=== PATIENT | male | born 1950 | race Caucasian/White ===

== ENCOUNTER 2021-03-28 09:51 | Emergency (ER) | payer MEDICARE, BC, SELFPAY ==
--- NOTE | 2021-03-28 10:01 | ED.GENADULT ---
HPI - General Adult General Chief complaint: Fall Stated complaint: Left buttox Pain Time Seen by Provider: 03/28/21 10:02 Source: patient and RN notes reviewed Mode of arrival: ambulatory Limitations: no limitations History of Present Illness HPI narrative: Dc is a 70-year-old male patient who [facility] Patient states he fell yesterday in his garage and landed on his left buttock. 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 The left pelvis was removed and he had a second surgery that removed his left leg and remaining left hip bone. Patient states he has no bone in the area. This was all done 30+ years ago. MD complaint: left buttock pain Related Data Home Medications Medication Instructions Recorded Confirmed losartan 100 mg PO DAILY 03/28/21 03/28/21 simvastatin 10 mg PO DAILY 03/28/21 03/28/21 tamsulosin 0.4 mg PO DAILY 03/28/21 03/28/21 verapamil 120 mg PO DAILY 03/28/21 03/28/21 Allergies Allergy/AdvReac Type Severity Reaction Status Date / Time STERI-TAPE Allergy Unknown BLISTERS Uncoded 03/28/21 10:17 Review of Systems Review of Systems: CONSTITUTIONAL: Denies body aches, fever, chills, or sweats. EYES: Denies visual changes, redness, or discharge. ENT: Denies rhinorrhea, congestion, sore throat, or otalgia. CARDIOVASCULAR: Denies chest pain, palpitations, or edema. RESPIRATORY: Denies cough or dyspnea. GASTROINTESTINAL: Denies abdominal pain, nausea, vomiting, or diarrhea. GENITOURINARY: Denies dysuria or hematuria. SKIN: Denies rash, itching, or wounds. MUSCULOSKELETAL: Denies back pain, + left butock pain. NEUROLOGIC: Denies headache, numbness, tingling, or weakness. PSYCH: Denies depression or anxiety. All systems reviewed & are unremarkable except as noted in HPI and below PMFSH Comments At time of signature, I have reviewed and agree with nursing past medical, surgical, social and family history unless otherwise noted. Please see nursing chart for further information. There is no relevant family history pertinent to the presenting complaint Exam Narrative: GENERAL: Well-appearing, well-nourished, and in no acute distress. HEAD: Normocephalic, atraumatic. EYES: EOMI. No redness or drainage. Conjunctivae normal. ENT: Mucous membranes pink and moist. Nares clear. NECK: Normal AROM. Supple. CHEST: No respiratory distress. MUSCULOSKELETAL: No bony tenderness, pain to left buttock with palpation, minimal bruising noted to area, minimal edeam noted. EXTREMITIES: Normal range of motion. No edema. SKIN: Warm, dry, no rash. Capillary refill normal. Normal skin turgor. NEURO: No focal deficits. Alert and oriented x3. Gait steady. PSYCH: Normal affect. No signs of depression or anxiety. Course Course Emergency Course: Patient was examined. Patient has a complicated history on the left pelvic and hip area. Patient has had removal of his left pelvic bones and left hip bones and left leg due to cancer over 30 years ago. Patient states all the hardware in that area have been removed. Vital Signs Vital signs: Reviewed Medical Decision Making Differential Diagnosis Differential Diagnosis: back strain, sciatica, left buttock pain Medical Records Medical records reviewed: Yes I reviewed the external patient's medical records. Critical Care Time Critical Care Time Critical Care Time: No Discharge Plan Discharge Clinical Impression: Buttock sprain Qualifiers: Encounter type: initial encounter Laterality: left Qualified Code(s): S73.192A - Other sprain of left hip, initial encounter Patient Disposition: Home, Self-Care Condition: Stable Instructions: Antibiotic Form, Muscle Strain (DC), Contusion in Adults (ED) Additional Instructions: Ice to area. Take medicines as directed. follow up with primary care physician in 3-5 days if no improvement noted. Patient Language: Arabic Prescriptions: New ibuprofen 800 mg
[2021-03-28 10:06] VITALS: BP 111/59; PULSE 96; RESP 16; TEMP 36.3; O2SAT 100
== END 2021-03-28 10:35 | disposition home or self-care (01) ==
PROVIDERS: Emergency Provider Nurse Practitioner Family
DX: S39.82XA Other specified injuries of lower back, initial encounter (principal); W19.XXXA Unspecified fall, initial encounter; Z85.830 Personal history of malignant neoplasm of bone; E78.00 Pure hypercholesterolemia, unspecified; I10 Essential (primary) hypertension; N40.0 Benign prostatic hyperplasia without lower urinary tract symptoms
CPT/HCPCS: 99213; G0463

== ENCOUNTER 2021-04-28 08:03 | Emergency (ER) | payer MEDICARE, BC, SELFPAY ==
--- NOTE | 2021-04-28 08:13 | ED.FALL ---
HPI - Fall General Chief Complaint: Extremity Injury, Lower Stated Complaint: fell left side pain Time Seen by Provider: 04/28/21 08:27 Source: patient and RN notes reviewed Mode of arrival: ambulatory Limitations: no limitations History of Present Illness HPI Narrative: 71-year-old male presents with concern for left hip area pain. He reports he was overly tired and lost his balance yesterday and fell from standing in his kitchen hitting a wood floor. 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 He is reporting pain in the soft tissue of the left pelvic area. He denies bruising, redness, warmth, open skin. Reports he used heat which was helpful. Reports he had an identical injury 1 month ago and was treated with prednisone and ibuprofen which resolved his pain. Patient uses crutches for mobility at baseline. He denies syncope or near syncope. Denies chest pain or trouble breathing. MD complaint: fall Related Data Home Medications Medication Instructions Recorded Confirmed losartan 100 mg PO DAILY 03/28/21 04/28/21 simvastatin 10 mg PO DAILY 03/28/21 04/28/21 tamsulosin 0.4 mg PO DAILY 03/28/21 04/28/21 verapamil 120 mg PO DAILY 03/28/21 04/28/21 Allergies Allergy/AdvReac Type Severity Reaction Status Date / Time STERI-TAPE Allergy Unknown BLISTERS Uncoded 04/28/21 08:29 Review of Systems Review of Systems: CONSTITUTIONAL: Denies malaise, chills, sweats, or fever. CARDIOVASCULAR: Denies chest pain, palpitations, or edema. RESPIRATORY: Denies cough or dyspnea. GASTROINTESTINAL: Denies abdominal pain SKIN: Denies bruising, redness, warmth, open skin MUSCULOSKELETAL: Reports left pelvic area pain NEUROLOGIC: Denies numbness, weakness All systems reviewed & are unremarkable except as noted in HPI and below PMFSH Comments At time of signature, agree with nursing past medical, surgical, social and family history. There is no relevant family history pertinent to the presenting complaint Exam Narrative: GENERAL: Well-appearing, well-nourished, and in no acute distress. HEAD: Normocephalic, atraumatic. EYES: PERRLA, sclera clear ENT: Mucous membranes moist. NECK: Supple. CHEST: No respiratory distress. Clear to auscultation. No bony deformities, no asymmetry. Speaks in full sentences. HEART: Regular rate and rhythm. No murmur heard. Normal peripheral pulses. EXTREMITIES: Grossly normal range of motion. No edema. Grossly normal strength and sensation. Tenderness to palpation upon left pelvic area/amputated area. SKIN: Warm, dry, no visible rash. NEURO: Alert and oriented x3. PSYCH: Normal mood and affect Course Course Emergency Course: Patient is aware of diagnosis, understands and agrees to treatment plan. Anticipatory guidance given. Patient agrees to follow-up as directed and is aware of reasons to seek care at the emergency department. Portions of this record may have been created with voice recognition software Vital Signs Vital signs: Reviewed. MDM - Fall MDM Narrative Medical decision making narrative: Patients injury and pain is consistent with musculoskeletal etiology. No signs of neurological or vascular compromise on exam. Compartments and tissues are soft without signs of compartment syndrome. Pain is felt appropriate for further evaluation on an outpatient basis. Critical Care Time Critical Care Time Critical Care Time: No Discharge Plan Discharge Clinical Impression: Acute hip pain Qualifiers: Laterality: left Qualified Code(s): M25.552 - Pain in left hip Fall Qualifiers: Encounter type: initial encounter Qualified Code(s): W19.XXXA - Unspecified fall, initial encounter Patient Disposition: Home, Self-Care Condition: Stable Instructions: Fall Prevention (ED) Additional Instructions: Avoid activities that cause pain until the pain subsides. Alternate heat and ice to the area 20-30 minutes 4-6 times a day Leeroy
[2021-04-28 08:16] VITALS: BP 125/65; PULSE 82; RESP 16; TEMP 37.2; O2SAT 100
== END 2021-04-28 08:40 | disposition home or self-care (01) ==
PROVIDERS: Emergency Provider Nurse Practitioner
DX: M25.552 Pain in left hip (principal); W18.30XA Fall on same level, unspecified, initial encounter; Y92.000 Kitchen of unspecified non-institutional (private) residence as the place of occurrence of the external cause
CPT/HCPCS: 99213; G0463

== ENCOUNTER 2022-05-10 10:00 | Emergency (ER) | payer MEDICARE, BC, SELFPAY ==
[2022-05-10 10:10] VITALS: BP 107/63; PULSE 86; RESP 18; TEMP 36.4; O2SAT 100
--- NOTE | 2022-05-10 11:14 | ED.MALEGU ---
HPI - Male Genitourinary General Chief complaint: Urogenital-Male Stated complaint: UTI Time Seen by Provider: 05/10/22 11:14 Source: patient, RN notes reviewed and old records reviewed Mode of arrival: ambulatory Limitations: no limitations History of Present Illness HPI Narrative: 72-year-old male presents to the [facility] with complaints of a UTI. Has a history of UTIs. Patient states that his normally nose but she in June of 2021. States he has just had strong urine, abnormal smell, on comfortable urination as well as just not feeling well. History of enlarged prostate, hypertension and high cholesterol Related Data Home Medications Medication Instructions Recorded Confirmed losartan 100 mg tablet 100 mg PO DAILY 03/28/21 05/10/22 simvastatin 10 mg tablet 10 mg PO DAILY 03/28/21 05/10/22 tamsulosin 0.4 mg capsule 0.4 mg PO DAILY 03/28/21 05/10/22 verapamil 120 mg tablet 120 mg PO DAILY 03/28/21 05/10/22 Allergies Allergy/AdvReac Type Severity Reaction Status Date / Time No Known Allergies Allergy Verified 05/10/22 10:40 Review of Systems Review of Systems: All systems reviewed & are unremarkable except as noted in HPI and below Constitutional: Constitutional: Reports no additional constitutional complaints Eyes: Eyes: Reports no additional eye complaints ENT: Reports system reviewed and no additional complaints, except as documented Cardiovascular: Cardiovascular: Reports no additional cardiovascular complaints, Denies chest pain and Denies dyspnea Respiratory: Respiratory: Reports no additional respiratory complaints, Denies chest congestion, Denies cough and Denies dyspnea Gastrointestinal: Gastrointestinal: Reports no additional gastrointestinal complaints, Denies abdominal pain, Denies nausea and Denies vomiting Genitourinary: Genitourinary: Reports as per HPI, Reports dysuria and Reports urinary frequency Musculoskeletal: Musculoskeletal: Reports no additional musculoskeletal complaints Integumentary/Breasts: Skin/Breast: Reports system reviewed and no additional complaints, except as docu Neurologic: Reports system reviewed and no additional complaints, except as documented Psychiatric: Psychiatric: Reports no additional psychiatric complaints Allergic/Immunologic: Allergic/Immunologic: Reports no additional allergic/immunologic complaints [facility] Past Medical History Medical History (Updated 05/10/22 @ 20:30 by Anabela Thibodeaux, ISAIAS) High cholesterol History of high blood pressure Surgical History Surgical History (Updated 12/26/22 @ 20:30 by Anabela Thibodeaux APRN) Amputated left leg Comments At the time of my signature, I reviewed and agree with the nursing past medical, surgical, social, and family history. There is no relevant family history pertinent to the patient complaint. Exam Const: General: cooperative, healthy appearing, comfortable, no acute distress, well developed, alert and well nourished Nutritional Appearance: well nourished Orientation/consciousness: patient oriented x3 Limitations: no limitations HENMT: Head: normal to inspection Ears: hearing grossly normal bilaterally and external ears normal Face/Nose/Sinus: Normal external nose present, Normal nares present, Normal nasal mucous membranes and turbinates present and normal facial exam Face and sinus: normal facial exam Mouth: Yes Normal oral and palatal mucosa present, Yes lip normal and Yes moist mucous membranes Throat: posterior oropharynx normal and uvula midline Eyes: General: appearance normal, both eyes and all related structures Alignment and Position: alignment normal Periorbital: periorbital findings normal Conjunctivae: conjunctivae normal Pupils: Equal, round and reactive pupils present EOM: EOMs intact bilaterally Neck: Neck: normal visual inspection, full ROM, no lymphadenopathy and no meningeal signs Chest: Chest palpation & inspection: normal inspection of the chest
== END 2022-05-10 11:25 | disposition home or self-care (01) ==
PROVIDERS: Emergency Provider Nurse Practitioner
DX: N30.01 Acute cystitis with hematuria (principal)
CPT/HCPCS: 81003; 87077; 87086; 87186; 99213; G0463

== ENCOUNTER 2022-06-05 20:07 | Inpatient (IN) | payer MEDICARE, BC, SELFPAY ==
--- NOTE | ~2022-06-05 | CT_ITS ---
Non-contrast CT scan of the Abdomen and Pelvis Clinical indication: Urinary retention Technique: 5 mm axial scans were obtained through the abdomen and pelvis without intravenous or oral contrast. Dose reduction technique was used on this scan by utilizing automated exposure control and iterative reconstruction technique. The dose-length product (DLP) was 1516.89 mGy-cm. Findings: Images through the lung bases reveal moderate bilateral pleural effusions with partial fabricio ateral lower lobe atelectasis. There is hyperdense material to right lung base, raising possibility o f aspiration. There are bilateral renal stones present, measuring up to 1.2 cm on the right, and 1.3 cm and the lef t. Suspected mild left hydronephrosis. Liver there appears small, with probable micronodular contour The spleen, pancreas, gallbladder, and adrenals appear normal. There is no aortic aneurysm. There is no evidence of bowel obstruction. Large amount of abdominopelvic ascites present. Images through the pelvis were performed. Patient is status post prior resection of the left half the pelvis. Probable urinary bladder stone present, versus possibly left UVJ stone. Urinary bladder valorie apsed around a Webb catheter. Impression: Probable cirrhotic liver with large amount of abdominopelvic ascites. Moderate bilateral pleural effusions. Hyperdense material right lung base raises possibility of aspir ation. Bilateral nephrolithiasis. Probable mild left hydronephrosis with possible left UVJ stone versus urin devon bladder stone. Prior left hemipelvectomy. Reviewed, dictated and finalized at [facility]. ER Impression: Probable cirrhotic liver with large amount of abdominopelvic ascites. Moderate bilateral pleural effusions. Hyperdense material right lung base raise s possibility of aspiration. Bilateral nephrolithiasis. Probable mild left hydronephrosis with possible left UVJ stone versus urinary bladder stone. Prior left hemipelvectomy.
--- NOTE | ~2022-06-05 | US_ITS ---
EXAMINATION: US paracentesis abd w/image DATE: 06/08/2022 12:54 INDICATION: Ascites. TECHNIQUE: The procedure and its risks, benefits, and alternatives were discussed with the patient. P otential risks discussed included bleeding and infection. The skin was prepped and draped in sterile fashion. 1% lidocaine was used for local anesthesia. Under ultrasound guidance, a 5 Fr catheter with trochar was advanced into the ascites in the left lower quadrant. Fluid was aspirated. The catheter w as removed, and a dressing was applied. There were no immediate complications. FINDINGS: Ultrasound images demonstrate ascites and the catheter within the fluid. IMPRESSION: 1. Successful ultrasound-guided paracentesis yielding 5000 mL of clear, yellow fluid. Reviewed, dictated and finalized at location A. MAKING MACHINE OPERATOR
--- NOTE | ~2022-06-05 | US_ITS ---
Testicular ultrasound with doppler. Indication: Scrotal edema. Technique: Real-time sonography the scrotum was performed. Color flow Doppler and Doppler spectral an alysis were performed. Findings: The testes are homogeneous in echotexture bilaterally. There is no evidence of an intrates ticular mass. The right testis measures 3.0 x 2.3 x 2.3 cm and the left 2.9 x 2.3 x 2.1 cm. There is color-flow seen to both testes. Arterial and venous spectral waveforms are seen in both testes. There is no sonographic evidence of torsion. The head of the epididymis is visualized bilaterally and is within normal limits. Marked, diffuse scrotal wall edema noted. Impression: No testicular mass or torsion. Marked, diffuse scrotal wall edema, nonspecific. Reviewed, dictated and finalized at [facility]. IC SEPARATOR OPERATOR Impression: No testicular mass or torsion. Marked, diffuse scrotal wall edema, nonspecific.
--- NOTE | ~2022-06-05 | XR_ITS ---
EXAMINATION: XR chest 1V portable DATE: 06/06/2022 02:39 INDICATION: Weakness. TECHNIQUE: A single frontal view of the chest was obtained. COMPARISON: None. FINDINGS: There is mild elevation of right hemidiaphragm. There is mild atelectasis in the lower lung zones. No pleural effusion or pneumothorax. The heart size is normal. IMPRESSION: 1. Mild atelectasis in the lower lung zones. Reviewed, dictated and finalized at location A. YTICAL DATA SCIENTIST
--- NOTE | ~2022-06-05 | US_ITS ---
EXAMINATION: US renal BI DATE: 06/07/2022 07:58 INDICATION: Urinary retention TECHNIQUE: Multiple ultrasound grayscale images of the kidneys were obtained. COMPARISON: CT dated 06/06/2022 FINDINGS: The right kidney measures 10.7 x 4.7 x 4.6 cm. The left kidney measures 11.4 x 6.2 x 5.5 cm. The kidn eys demonstrate normal echogenicity. There is no hydronephrosis in either kidney. No stones identifi ed. The bladder is decompressed around a Webb catheter which limits evaluation. Large amount of asci beny. IMPRESSION: 1. Normal kidneys without hydronephrosis. 2. Large amount of ascites. Reviewed, dictated and finalized at location B. ITY ASSURANCE AUDITOR
--- NOTE | ~2022-06-05 | US_ITS ---
EXAMINATION: US venous doppler LE RT DATE: 06/07/2022 07:59 INDICATION: Lower limb swelling and erythema TECHNIQUE: Grayscale ultrasound images without and with compression and Doppler ultrasound images of the right lower extremity veins were obtained. COMPARISON: None. FINDINGS: The visualized portions of right common femoral vein, profunda (deep) femoral vein, femoral vein, pop liteal vein, peroneal trunk, posterior tibial veins, peroneal veins, gastrocnemius vein and greater s aphenous vein outflow are patent. IMPRESSION: 1. No deep venous thrombosis in the right lower limb. Reviewed, dictated and finalized at location B. CTOR CHILD ABUSE THERAPY
[2022-06-05 20:39] VITALS: BP 116/60; PULSE 96; RESP 16; TEMP 37; O2SAT 100
--- NOTE | 2022-06-06 01:37 | ECG_ITS ---
Measurements Intervals [place] Rate: 87 P: MS: 0 QRS: -11 QRSD: 102 T: 94 QT: 345 QTc: 417 Interpretive Statements SINUS OR ECTOPIC ATRIAL RHYTHM LOW QRS VOLTAGE IN LIMB LEADS ANTEROSEPTAL INFARCT, AGE INDETERMINATE BORDERLINE ST-T WAVE ABNORMALITY- HIGH LATERAL LEADS BASELINE ARTIFACT- I, V1-V3 ABNORMAL ECG NO PREVIOUS ECG AVAILABLE FOR COMPARISON Electronically Signed On 06-06-2022 7:21:47 COFFEE ROASTER by Rosalio Rai D.O.
--- NOTE | 2022-06-06 02:06 | ED.GENADULT ---
HPI - General Adult General Chief complaint: Weakness Stated complaint: increased weakness, N/V, loss of appetite Time Seen by Provider: 06/06/22 01:21 History of Present Illness HPI narrative: Patient 72-year-old gentleman who presents the emergency department with chief complaint of generalized weakness. Patient reports that for some time getting progressively weaker. 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 Related Data Home Medications Medication Instructions Recorded Confirmed losartan 100 mg tablet 100 mg PO DAILY 03/28/21 05/10/22 simvastatin 10 mg tablet 10 mg PO DAILY 03/28/21 05/10/22 tamsulosin 0.4 mg capsule 0.4 mg PO DAILY 03/28/21 05/10/22 verapamil 120 mg tablet 120 mg PO DAILY 03/28/21 05/10/22 Allergies Allergy/AdvReac Type Severity Reaction Status Date / Time No Known Allergies Allergy Verified 06/05/22 20:08 Review of Systems Review of Systems: A 10 system review of systems was completed on the patient and is negative except for what is stated in the HPI. Nursing and ancillary documentation was reviewed. [facility] Past Medical History Medical History High cholesterol History of high blood pressure Surgical History Surgical History Amputated left leg Exam Narrative: GENERAL: Well-appearing, well-nourished, and in no acute distress. HEAD: Normocephalic, atraumatic. EYES: PERRLA and EOMI. ENT: Nares clear, no rhinorrhea or epistaxis. Mucous membranes moist. NECK: Supple. CHEST: Clear to auscultation. No respiratory distress. HEART: Regular rate and rhythm. No murmur heard. Normal peripheral pulses. ABDOMEN: Soft, nontender, nondistended, normal active bowel sounds. EXTREMITIES: Normal range of motion. No edema. There is redness present on the medial thigh on the right leg. 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 NEURO: No focal deficits. Alert and oriented x3. PSYCH: Normal mood and affect. Course Vital Signs Vital signs: Vital Signs Temperature 37.0 C 06/05/22 20:39 Pulse Rate 96 06/05/22 20:39 Respiratory Rate 16 06/05/22 20:39 Blood Pressure 116/60 06/05/22 20:39 Pulse Oximetry 100 06/05/22 20:39 Temperature 37.0 C 06/05/22 20:39 Pulse Rate 96 06/05/22 20:39 Respiratory Rate 16 06/05/22 20:39 Blood Pressure 116/60 06/05/22 20:39 Pulse Oximetry 100 06/05/22 20:39 Medical Decision Making MDM Narrative Medical decision making narrative: Patient's urinalysis showed evidence of UTI. Prior culture showed evidence of pseudomonal UTIs due to this initially the plan was to be to start the patient on a Rocephin coverage but due to the pseudomonal previous cultures have the patient will be given Levaquin. The patient had a slightly elevated lactate at 3.3 and was showing some transaminitis the patient is not tachycardic or hypotensive at this time the case was discussed with the hospitalist and the patient will be admitted to the hospital. Vital Signs Vital Signs: Vital Signs Temperature 37.0 C 06/05/22 20:39 Pulse Rate 96 06/05/22 20:39 Respiratory Rate 16 06/05/22 20:39 Blood Pressure 116/60 06/05/22 20:39 Pulse Oximetry 100 06/05/22 20:39 Temperature 37.0 C 06/05/22 20:39 Pulse Rate 96 06/05/22 20:39 Respiratory Rate 16 06/05/22 20:39 Blood Pressure 116/60 06/05/22 20:39 Pulse Oximetry 100 06/05/22 20:39 Lab Data 06/06/22 02:05
[2022-06-06] MEDS: SODIUM CHLORIDE 0.9% IV 1,000 ML 999 ML IV CONT ×2 (02:12→04:07)
[2022-06-06 02:33] LABS: Basophils Percent Auto 0.1 % (0.2-1.2); Eosinophils Percent Auto 0.1 % (0-4.4); Hematocrit 36.5 % (42.0-52.0); Hemoglobin 12.6 g/dL (14.0-18.0); Immature Granulocyte Absolute 0.04 K/mm3 (0.00-0.031); Immature Granulocyte Percent A 0.4 % (0-0.5); Lymphocytes Absolute Auto 0.82 K/mm3 (0.9-3.2); Lymphocytes Percent Auto 8.2 % (18.3-44.2); Mean Corpuscular HGB Conc 34.5 g/dl (32-36); Mean Corpuscular Hemoglobin 32.8 pg (26-34); Mean Corpuscular Volume 95.1 fl (80-100); Mean Platelet Volume 10.7 fl (7.4-10.4); Monocytes Absolute Auto 1.4 K/mm3 (0.1-0.6); Monocytes Percent Auto 13.7 % (2.6-8.5); Neutrophils Absolute Auto 7.7 K/mm3 (1.3-6.7); Neutrophils Percent Auto 77.5 % (45.5-73.1); Platelet Count Result 228 k/mm3 (150-375); Red Blood Count 3.84 M/mm3 (4.6-6.20); Red Cell Distribution Width 14.6 % (11.5-14.5)
[2022-06-06 02:35] LABS: Appearance Urine Clear (Clear); Bilirubin Urine 1+ (Negative); Blood Urine 2+ (Negative); Color Urine Yellow (Yellow); Glucose Urine UA Negative (Negative); Ketones Urine Trace mg/dL (Negative); Leukocyte Esterase Ur 1+ LEU/UL (Negative); Nitrate Urine Positive (Negative); Protein Urine Trace mg/dL (Negative); Urobilinogen Urine 0.2 mg/dL (<2.0); pH Urine 5.5 (5.0-9.0)
[2022-06-06 02:40] LABS: Bacteria Urine Trace /hpf; Mucus Urine Rare /lpf; RBC Urine 0-2 /hpf (0-2); Squamous Epithelial Cell Urine Rare /hpf (Few)
[2022-06-06 02:44] LABS: INR 1.1; Prothrombin Time 14.1 Seconds (11.1-14.7)
[2022-06-06 02:45] LABS: Alanine Aminotransferase 64 U/L (6-50); Alkaline Phosphatase 90 U/L (38-126); Anion Gap 5 mmol/L (8-16); Aspartate Amino Transferase 147 U/L (17-59); Bilirubin,Total 1.3 mg/dL (0.2-1.3); Blood Urea Nitrogen 64 mg/dL (9-20); Calcium 8.1 mg/dL (8.4-10.2); Carbon Dioxide 29 mmol/L (22-30); Chloride 93 mmol/L (98-107); Estimated CRCL calculation 32 ml/min; Estimated Glomerular Filt Rate 37; Glucose 114 mg/dL (65-110); Lactic Acid Reflex 3.3 mmol/L (0.7-2.0); Magnesium 1.9 mg/dL (1.6-2.3); Partial Thromboplastin Time 30.3 SECONDS (22.3-36.8); Potassium 4.4 mmol/L (3.4-5.0); Sodium 127 mmol/L (137-145)
[2022-06-06 02:52] LABS: Add Urine Microscopic? YES
[2022-06-06 02:57] LABS: Troponin I 0.015 ng/mL (0.000-0.034)
[2022-06-06 03:39] LABS: Procalcitonin 3.9 ng/mL
[2022-06-06 04:50] LABS: Influenza A QL RT-PCR Negative (Negative); Influenza B QL RT-PCR Negative (Negative); RSV RNA, RT-PCR Negative (Negative); SARS-CoV-2 RNA PCR Negative
[2022-06-06 05:31] LABS: Reflex Lactic Acid Yes or No Add Lactic
[2022-06-06 05:34] LABS: Troponin I < 0.012 ng/mL (0.000-0.034)
[2022-06-06 06:08] VITALS: BMI 22.1
--- NOTE | 2022-06-06 06:19 | ADMGEN ---
This patient, Dc Pizano, was admitted to [address] [place] [address] Room 315-02. Patient/family oriented to hospital policies and general routines including ID bracelet, bed and alarms, visiting hours, pain management, procedures, bathroom and other care routines, personal items, smoking policy, room service/diet, and visiting hours. Information on how to activate the Rapid Response Team has been discussed. Patient/Family are encouraged to report perceived risks to care and to ask questions if they do not understand what they are told or what they should do.
[2022-06-06 06:41] LABS: Lactic Acid 2.3 mmol/L (0.7-2.0)
[2022-06-06 08:01] VITALS: BP 112/60; PULSE 94; RESP 17; TEMP 36.9; O2SAT 98
[2022-06-06] MEDS: SODIUM CHLORIDE 0.9% IV 1,000 ML 125 ML IV CONT ×2 (08:37→13:28)
[2022-06-06] MEDS: VERAPAMIL HCL 120 MG TABLET IMMED RELEASE PO (09:37)
[2022-06-06] MEDS: SERTRALINE HCL 25 MG TABLET PO (09:37)
[2022-06-06] MEDS: TAMSULOSIN HCL 0.4 MG CAPSULE PO (09:37)
[2022-06-06] MEDS: ENOXAPARIN 40 MG/0.4 ML SYRINGE SUB-Q (09:37)
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
[2022-06-06 13:03] LABS: Sodium 131 mmol/L (137-145)
[2022-06-06 13:07] LABS: Lactic Acid Reflex 2.5 mmol/L (0.7-2.0)
[2022-06-06 13:29] LABS: Creatine Kinase 385 U/L (55-170)
[2022-06-06 14:00] VITALS: BP 96/62; PULSE 73; RESP 20; TEMP 36.2; O2SAT 94
[2022-06-06 16:10] LABS: Folic Acid 3.3 ng/mL (2.76->20)
[2022-06-06 19:19] LABS: Free T4 Free Thyroxine Reflex 1.77 ng/dL (0.78-2.19)
[2022-06-06 20:06] LABS: Total Triiodothyronine (T3) 0.89 NG/ML (0.97-1.69)
--- NOTE | 2022-06-06 21:50 | WPDURCON ---
Assessment and Plan Assessment and plan (1) Urinary retention: Code(s): R33.9 - Retention of urine, unspecified Status: Acute Assessment and Plan: Based on the fact patient is draining clear urine in his bladder irrigates freely and normally I do not suspect he is in urinary tension, and may never have been. Ordered a CT scan abdomen and pelvis to look for appropriate positioning of his Webb catheter in his bladder and other explanations for suggestion of incomplete bladder emptying on bladder scan. Urology Consult Note HPI Date Seen: 06/06/22 Requesting Physician: Kayla Yates PA-C Primary Care Provider: [facility]YSIC[facility] Consult Narrative Narrative: Dc Pizano is a 72 year old male without prior known urological history and previously unknown to our practice. He presents to the emergency department with generalized weakness. Two urethral catheters have been placed but he has been noted to have minimal urine output. Attempts of bladder scan suggest a volume of approximately 2000 cc. When I arrived on a Tuesday evening the patient was comfortable in his catheter had approximately 200 cc of clear urine in it. His Webb catheter irrigates well. He does have a distorted anatomy and I suspect what this proceed to his incomplete bladder emptying is some other pelvic structure. Review of Systems Review of Systems: ROS unobtainable: Yes unobtainable due to mental status PMFSH Past Medical History Medical History (Updated 06/06/22 @ 13:21 by Kayla Yates PA-C) High cholesterol History of high blood pressure Osteosarcoma Surgical History Surgical History Amputated left leg Social History Social History (Updated 06/06/22 @ 13:03 by Kayla Yates PA-C) Years smoked: 50 Smoking status: Current every day smoker Tobacco type: pipe Alcohol intake: current Alcohol use details: 1-2 drinks/year Substance use: never Lack of Transportation: No Lack of Food: Never True Current Housing: I Have Housing Concerned About Future Housing: No Difficulty Paying Gas/Electric Bills: No Difficulty Paying for Meds: No Currently Unemployed: No Education: Master's Degree or Higher Difficulty w/ Childcare or Family Care: No Spiritual care concerns: No Meds Home Medications and Allergies Home Medications Medication Instructions Recorded Confirmed Type tamsulosin 0.4 mg capsule 0.4 mg PO DAILY 03/28/21 06/06/22 History verapamil 120 mg tablet 120 mg PO DAILY 03/28/21 06/06/22 History cephalexin 500 mg capsule 500 mg PO TID uti 06/06/22 06/06/22 History cholecalciferol (vitamin D3) 125 mcg PO WEEKLY 06/06/22 06/06/22 History meclizine 25 mg tablet 25 mg PO TID 06/06/22 06/06/22 History sertraline 25 mg tablet 25 mg PO DAILY 06/06/22 06/06/22 History Allergies Allergy/AdvReac Type Severity Reaction Status Date / Time No Known Allergies Allergy Verified 06/05/22 20:08 Vital Signs Vital Signs - 24 hr 06/06/22 08:01 06/06/22 08:00 06/06/22 14:00 Temperature 98.4 F 97.1 F L Pulse Rate 94 73 Respiratory Rate 17 20 Blood Pressure 112/60 96/62 L Pulse Oximetry 98 94 Oxygen Delivery Room Air Exam Const: General: no acute distress Resp: Effort & Inspection: normal respiratory effort GI: Inspection: non-distended GI Palp: No abdominal tenderness and No Guarding due to palpation present (GI) Auscultation: normal bowel sounds Other: Patien's abdomen is somewhat asymmetrical, likely due to his left above the knee amputation. : Male General Exam: Yes normal external exam Urinary Catheter: Urinary Catheter: patent and draining and urine clear Results Labs 06/06/22 02:05 06/06/22 12:53 Labs: Short CBC 06/06/22 Range/Units 02:05 WBC 10.0 (4.5-10.0) K/mm3 Hgb 12.6 L (14.0-18.0) g/dL Hct 36.5 L (42.0-52.0) % Plt Count 228
[2022-06-06 22:18] VITALS: BP 100/66; PULSE 73; RESP 18; TEMP 36.4; O2SAT 98
[2022-06-07 05:38] VITALS: BP 99/68; PULSE 67; RESP 16; TEMP 36.6; O2SAT 96
--- NOTE | 2022-06-07 07:31 | WPDUROPN2 ---
Progress Note: A&P Assessment and Plan (1) Generalized weakness: Code(s): R53.1 - Weakness Status: Acute Assessment and Plan: CT scan of the abdomen and pelvis confirms the patient's catheter is appropriately positioned and has bladder and draining well. Continues to have output of clear urine. CT scan does reveal significant pleural effusions and ascites. The ascites is probably what led to an inaccurate bladder scan suggesting urinary retention Patient does have some small stones in his bladder and a large stone in his left kidney which will likely require left ESWL, at some point down the road when he is more medically fit. Subjective Subjective Date/Time Seen: 06/07/22 07:31 No complaints, comfortable Review of Systems Review of Systems: ROS unobtainable: Yes unobtainable due to mental status Exam Const: General: no acute distress Resp: Effort & Inspection: normal respiratory effort GI: Inspection: non-distended GI Palp: No abdominal tenderness and No Guarding due to palpation present (GI) Auscultation: normal bowel sounds Other: Patien's abdomen is somewhat asymmetrical, likely due to his left above the knee amputation. : Male General Exam: Yes normal external exam Urinary Catheter: Urinary Catheter: patent and draining and urine clear Objective Data Vital Signs Vital Signs: Vital Signs - 24 hr 06/06/22 08:01 06/06/22 08:00 06/06/22 14:00 Temperature 98.4 F 97.1 F L Pulse Rate 94 73 Respiratory Rate 17 20 Blood Pressure 112/60 96/62 L Pulse Oximetry 98 94 Oxygen Delivery Room Air 06/06/22 22:18 06/07/22 05:38 Temperature 97.5 F L 97.8 F Pulse Rate 73 67 Respiratory Rate 18 16 Blood Pressure 100/66 99/68 L Pulse Oximetry 98 96 Oxygen Delivery Intake/Output Intake/Output: Intake & Output 06/04/22 06/05/22 06/06/22 06/07/22 23:59 23:59 23:59 23:59 Intake Total 3890 50 Output Total 150 500 Balance 3740 -450 Meds/Results Medications: Active Medications Generic Name Dose Route Start Last Admin Trade Name Freq PRN Reason Stop Dose Admin Acetaminophen 650 mg 06/06/22 08:50 Acetaminophen 325 Mg Tablet PO Q6H PRN Pain 1-3 Enoxaparin Sodium 40 mg 06/06/22 09:00 06/06/22 09:37 Enoxaparin 40 Mg/0.4 Ml Syringe SUB-Q 40 mg DAILY KAREN Administration Sodium Chloride 1,000 mls @ 125 mls/hr 06/06/22 04:45 06/06/22 13:28 Normal Saline Iv IV CONT 125 mls/hr .Q8H KAREN Administration Cefazolin Sodium 1 gm in 50 mls @ 100 mls/hr 06/06/22 12:45 06/07/22 06:09 Ancef 1 Gm/D5w 50 Ml Pm IVPB 100 mls/hr Q8HR KAREN Administration Sertraline HCl 25 mg 06/06/22 09:00 06/06/22 09:37 Sertraline Hcl 25 Mg Tablet PO 25 mg DAILY KAREN Administration Tamsulosin HCl 0.4 mg 06/06/22 09:00 06/06/22 09:37 Tamsulosin Hcl 0.4 Mg Capsule PO 0.4 mg DAILY KAREN Administration Verapamil HCl 120 mg 06/06/22 09:00 06/06/22 09:37 Verapamil Hcl 120 Mg Tablet Immed Release PO 120 mg DAILY KAREN Administration Radiology Results: ITS Impressions Chest X-Ray 06/06/22 07:53 IMPRESSION: 1. Mild atelectasis in the lower lung zones. Abdomen/Pelvis CT 06/07/22 06:40 Impression: Probable cirrhotic liver with large amount of abdominopelvic ascites. Moderate bilateral pleural effusions. Hyperdense material right lung base raises possibility of aspiration. Bilateral nephrolithiasis. Probable mild left hydronephrosis with possible left UVJ stone versus urinary bladder stone. Prior left hemipelvectomy. Labs Labs: Laboratory Results - last 24 hr 06/06/22 06/06/22 06/06/22 02:05 02:05 02:05 Sodium Lactic Acid Total Creatine Kinase Vitamin B12 Folate TSH (Reflex) 9.720 H Free T4 1.77 Total T3 0.89 L 06/06/22 06/06/22 06/06/22 05:00 12:53 12:53 Sodium 131 L Lactic Acid 2.5 H Total Creatine Kinase Vitamin B12 414.0 Folat
[2022-06-07 07:53] LABS: Alanine Aminotransferase 47 U/L (6-50); Albumin Level 2.5 g/dL (3.5-5.1); Alkaline Phosphatase 85 U/L (38-126); Anion Gap -1 mmol/L (8-16); Aspartate Amino Transferase 65 U/L (17-59); Blood Urea Nitrogen 53 mg/dL (9-20); CRP 7.5 mg/dL (<1.0); Calcium 7.8 mg/dL (8.4-10.2); Carbon Dioxide 31 mmol/L (22-30); Chloride 98 mmol/L (98-107); Estimated CRCL calculation 36 ml/min; Estimated Glomerular Filt Rate 42; Glucose 95 mg/dL (65-110); Potassium 3.7 mmol/L (3.4-5.0); Sodium 128 mmol/L (137-145)
[2022-06-07 07:56] LABS: Eosinophils Percent Auto 0.2 % (0-4.4); Hematocrit 32.4 % (42.0-52.0); Hemoglobin 10.8 g/dL (14.0-18.0); Immature Granulocyte Absolute 0.02 K/mm3 (0.00-0.031); Immature Granulocyte Percent A 0.4 % (0-0.5); Lymphocytes Absolute Auto 0.62 K/mm3 (0.9-3.2); Lymphocytes Percent Auto 11.9 % (18.3-44.2); Mean Corpuscular HGB Conc 33.3 g/dl (32-36); Mean Corpuscular Hemoglobin 33.2 pg (26-34); Mean Corpuscular Volume 99.7 fl (80-100); Mean Platelet Volume 10.5 fl (7.4-10.4); Monocytes Absolute Auto 0.7 K/mm3 (0.1-0.6); Monocytes Percent Auto 13.6 % (2.6-8.5); Neutrophils Absolute Auto 3.9 K/mm3 (1.3-6.7); Neutrophils Percent Auto 73.9 % (45.5-73.1); Platelet Count Result 130 k/mm3 (150-375); Red Blood Count 3.25 M/mm3 (4.6-6.20); Red Cell Distribution Width 14.7 % (11.5-14.5); White Blood Count 5.2 K/mm3 (4.5-10.0)
[2022-06-07] MEDS: TAMSULOSIN HCL 0.4 MG CAPSULE PO (09:58)
[2022-06-07] MEDS: VERAPAMIL HCL 120 MG TABLET IMMED RELEASE PO (09:58)
[2022-06-07] MEDS: SERTRALINE HCL 25 MG TABLET PO (09:58)
[2022-06-07] MEDS: ENOXAPARIN 40 MG/0.4 ML SYRINGE SUB-Q (09:58)
[2022-06-07 11:43] VITALS: BMI 22.1
--- NOTE | 2022-06-07 12:21 | PCSTNOTE ---
Please refer to the Bedside Swallow Evaluation in the EMR. Please note, silent aspiration cannot be ruled out at bedside.
--- NOTE | 2022-06-07 13:35 | PM.IMPN ---
Progress Note: A&P Assessment and Plan (1) Acute UTI: Code(s): N39.0 - Urinary tract infection, site not specified Status: Acute Assessment and Plan: Urinalysis grossly abnormal on admission. Patient has history of Pseudomonas UTI in April 2022. Repeat urine culture with growth of [phone] CFU Pseudomonas. Continue with IV Levaquin. Await susceptibility report and tailor antibiotics accordingly. No leukocytosis or fever. (2) Ascites: Code(s): R18.8 - Other ascites Status: Acute Assessment and Plan: CT of the abdomen/pelvis revealed large amount of abdominopelvic ascites with probable cirrhotic liver. Will proceed with GI consultation. Total bilirubin is within normal limits. AST is mildly elevated with additional LFTs within normal limits. Will proceed with GI consultation. Recommendations are appreciated (3) Generalized weakness: Code(s): R53.1 - Weakness Status: Acute Assessment and Plan: Presented with worsening progressive weakness. Suspect due to overall physical deconditioning worsened by acute infection. Appreciate PT/OT eval. Implement fall precautions. CK did only minimally elevated, not felt to be significant. B12 and folate within normal limits. (4) Cellulitis of right lower extremity: Code(s): L03.115 - Cellulitis of right lower limb Status: Acute Assessment and Plan: Right lower extremity markedly erythematous, edematous, and warm to palpation. Weeping serous fluid. Continue IV Ancef. CRP 7.5. Venous Doppler negative for DVT. Appreciate wound care recommendations. Elevate the extremity. Supportive care. (5) Scrotal edema: Code(s): N50.89 - Other specified disorders of the male genital organs Status: Acute Assessment and Plan: Noted on exam to have scrotal edema. Patient is asymptomatic. Scrotal ultrasound negative for mass or torsion, revealed marked diffuse scrotal wall edema. Likely due to hypervolemia/abdominopelvic ascites. See plan as above. (6) Urinary retention: Code(s): R33.9 - Retention of urine, unspecified Status: Acute Assessment and Plan: Patient noted to have decreased urine output yesterday, bladder scan completed which revealed 1800 cc. Webb catheter was initiated with about 200 cc urine output. Suspect that ascites fluid was being picked up on the bladder scan. No concerns for acute retention at this time per Urology recommendations. I discussed the case with Dr. Mathur. Plan for voiding trial in the next 1-2 days. Continue Flomax (7) Elevated lactic acid level: Code(s): R79.89 - Other specified abnormal findings of blood chemistry Status: Acute Assessment and Plan: Lactic acid was 3.3 on presentation. Improved with IV fluids to 2.5. IV fluids discontinued subsequently due to ascites and edema. He is not acidotic and serum bicarb is 31. (8) Hyponatremia: Code(s): E87.1 - Hypo-osmolality and hyponatremia Status: Acute Assessment and Plan: Sodium slightly decreased on presentation but did improve with IV fluids. Sodium 128 today. Continue to monitor. (9) Abnormal CT scan: Code(s): R93.89 - Abnormal findings on diagnostic imaging of other specified body structures Status: Acute Assessment and Plan: CT of the abdomen/pelvis revealed hyperdense material of the right lung base, concern for possible aspiration. Patient denies dysphagia. No concerning symptoms for pneumonia. Will proceed with bedside swallow eval to assess for aspiration (10) Nephrolithiasis: Code(s): N20.0 - Calculus of kidney Status: Acute Assessment and Plan: CT of the abdomen/pelvis reveals bilateral nephrolithiasis with possible left UVJ stone versus urinary bladder stone. Appreciate urology recommendations. He will require ESWL at a later date (11) Elevated serum creatinine:
[2022-06-07 14:00] VITALS: BP 98/76; PULSE 100; RESP 20; TEMP 36.2; O2SAT 100
--- NOTE | 2022-06-07 15:29 | WPDGICN ---
Assessment and Plan Assessment and plan (1) Abnormal CT scan: Code(s): R93.89 - Abnormal findings on diagnostic imaging of other specified body structures Status: Acute Assessment and Plan: the scan reveals small liver which appears micronodular. There is also a large amount of ascites. (2) Cirrhosis: Code(s): K74.60 - Unspecified cirrhosis of liver Status: Acute Assessment and Plan: This diagnosis is new to him. He denies any prior history of liver disease. He had been a drinker of [employer] but states that he never drink a lot. We will investigate with serology for hepatitis and other possible causes of liver disease INR is normal but albumin is low at 2.5 (3) Ascites: Code(s): R18.8 - Other ascites Status: Acute Assessment and Plan: He says that this is a new occurrence for him. I told that we will schedule him for paracentesis to remove up to 5 L of possible. This will be a diagnostic paracentesis (4) Weakness: Code(s): R53.1 - Weakness Status: Acute Assessment and Plan: he admits that he has not been eating much last several days and had not been able to get around the house. (5) Urinary retention: Code(s): R33.9 - Retention of urine, unspecified Status: Acute Assessment and Plan: A straight cath was placed and 1800 cc of urine empty from his bladder (6) Hyponatremia: Code(s): E87.1 - Hypo-osmolality and hyponatremia Status: Acute Assessment and Plan: Initial sodium was 127 which is a normal range for individuals with cirrhosis. It is now up to 131. we must avoid over hydrating him to to avoid worsening his ascites. Plan will schedule paracentesis. GI Consult Note Consult date/time: 06/07/22 15:29 HPI: Dc Pizano is a 72 year old male was brought here from home because of severe weakness. He lives alone. He states that he gets this food delivered and is fairly independent of was becoming very weak. He cannot actually recall all circumstances of him coming here but apparently somebody went to check on him and he could not get out of the bathtub. He states that his appetite has dropped off lately. He has become distended in the abdomen over the past few weeks and also has more swelling in his right lower extremity. He has had a left leg amputation in the past CT scan showed a large amount of ascites and what looks like cirrhosis. He states he has no past history of liver disease jaundice, or hepatitis. He denies excessive bruising. He states that he does not drink but used to enjoy some [place] whiskey. He denies any family history of liver disease he denies itching or dark urine. Issues that he has never been jaundiced. Review of Systems Review of Systems: All systems reviewed & are unremarkable except as noted in HPI and below PMFSH Past Medical History Medical History High cholesterol History of high blood pressure Osteosarcoma Surgical History Surgical History Amputated left leg Social History Social History Years smoked: 50 Smoking status: Current every day smoker Tobacco type: pipe Alcohol intake: current Alcohol use details: 1-2 drinks/year Substance use: never Lack of Transportation: No Lack of Food: Never True Current Housing: I Have Housing Concerned About Future Housing: No Difficulty Paying Gas/Electric Bills: No Difficulty Paying for Meds: No Currently Unemployed: No Education: Master's Degree or Higher Difficulty w/ Childcare or Family Care: No Spiritual care concerns: No Meds Home Medications and Allergies Home Medications Medication Instructions Recorded Confirmed Type tamsulosin 0.4 mg capsule 0.4 mg PO DAILY 03/28/21 06/06/22 History
[2022-06-07 16:25] LABS: Ammonia < 9 umol/L (9-30)
[2022-06-07 17:54] LABS: Hepatitis B Surface Antigen Negative (Negative)
[2022-06-07 18:00] LABS: HAV RESULT Negative (Negative); Hepatitis B Core IgM Result Negative (Negative)
[2022-06-07 18:11] LABS: Hepatitis C Virus Antibody Negative (Negative)
[2022-06-07 20:00] VITALS: O2SAT 97
[2022-06-07 22:08] VITALS: BP 95/58; PULSE 69; RESP 16; TEMP 36.8; O2SAT 97
[2022-06-08 06:09] VITALS: BP 97/64; PULSE 69; RESP 16; TEMP 36.7; O2SAT 99
[2022-06-08 07:05] LABS: Eosinophils Absolute Auto 0.1 K/mm3 (0-0.3); Hematocrit 30.7 % (42.0-52.0); Hemoglobin 10.5 g/dL (14.0-18.0); Immature Granulocyte Absolute 0.03 K/mm3 (0.00-0.031); Immature Granulocyte Percent A 0.6 % (0-0.5); Lymphocytes Absolute Auto 0.71 K/mm3 (0.9-3.2); Lymphocytes Percent Auto 14.5 % (18.3-44.2); Mean Corpuscular HGB Conc 34.2 g/dl (32-36); Mean Corpuscular Hemoglobin 33.7 pg (26-34); Mean Corpuscular Volume 98.4 fl (80-100); Mean Platelet Volume 10.4 fl (7.4-10.4); Monocytes Absolute Auto 0.8 K/mm3 (0.1-0.6); Monocytes Percent Auto 15.7 % (2.6-8.5); Neutrophils Absolute Auto 3.3 K/mm3 (1.3-6.7); Neutrophils Percent Auto 68.2 % (45.5-73.1); Platelet Count Result 125 k/mm3 (150-375); Red Blood Count 3.12 M/mm3 (4.6-6.20); Red Cell Distribution Width 14.6 % (11.5-14.5); White Blood Count 4.9 K/mm3 (4.5-10.0)
[2022-06-08 07:15] LABS: Iron 23 ug/dL (49-181)
[2022-06-08 07:22] LABS: Alanine Aminotransferase 36 U/L (6-50); Albumin Level 2.3 g/dL (3.5-5.1); Alkaline Phosphatase 87 U/L (38-126); Anion Gap 0 mmol/L (8-16); Aspartate Amino Transferase 55 U/L (17-59); Bilirubin,Total 0.8 mg/dL (0.2-1.3); Blood Urea Nitrogen 47 mg/dL (9-20); CRP 6.1 mg/dL (<1.0); Calcium 7.6 mg/dL (8.4-10.2); Carbon Dioxide 31 mmol/L (22-30); Chloride 97 mmol/L (98-107); Estimated CRCL calculation 39 ml/min; Estimated Glomerular Filt Rate 46; Glucose 87 mg/dL (65-110); Magnesium 1.9 mg/dL (1.6-2.3); Potassium 3.5 mmol/L (3.4-5.0); Sodium 128 mmol/L (137-145)
[2022-06-08 07:24] LABS: Percent Iron Saturation 14 % (20-50)
--- NOTE | 2022-06-08 07:46 | WPDGIPROGNO ---
Progress Note: A&P Assessment and Plan (1) Abnormal CT scan: Code(s): R93.89 - Abnormal findings on diagnostic imaging of other specified body structures Status: Acute Assessment and Plan: the scan reveals small liver which appears micronodular. There is also a large amount of ascites. Paracentesis will be done today. (2) Cirrhosis: Code(s): K74.60 - Unspecified cirrhosis of liver Status: Acute Assessment and Plan: This diagnosis is new to him. He denies any prior history of liver disease. He had been a drinker of [employer] but states that he never drink a lot. We will investigate with serology for hepatitis and other possible causes of liver disease INR is normal but albumin is low at 2.5 Of note, his serum ferritin level was elevated at 834. This could reflect hemochromatosis. I will obtain iron studies. If iron saturation is high, then we will obtain genetics for hemochromatosis. (3) Ascites: Code(s): R18.8 - Other ascites Status: Acute Assessment and Plan: He says that this is a new occurrence for him. I told that we will schedule him for paracentesis to remove up to 5 L of possible. This will be a diagnostic paracentesis 06/08/2022 Diagnostic paracentesis will be done this morning (4) Weakness: Code(s): R53.1 - Weakness Status: Acute Assessment and Plan: he admits that he has not been eating much last several days and had not been able to get around the house. He is eating fairly well here. He states that he does not eat well at home because it is up to him to prepare food. He does have food delivered by [employer] or other agencies (5) Urinary retention: Code(s): R33.9 - Retention of urine, unspecified Status: Acute Assessment and Plan: A straight cath was placed and 1800 cc of urine empty from his bladder (6) Hyponatremia: Code(s): E87.1 - Hypo-osmolality and hyponatremia Status: Acute Assessment and Plan: Initial sodium was 127 which is a normal range for individuals with cirrhosis. It is now up to 131. we must avoid over hydrating him to to avoid worsening his ascites. Sodium is stable at 1:28 a.m. and then a reasonable range for a cirrhotic. (7) Elevated serum creatinine: Code(s): R79.89 - Other specified abnormal findings of blood chemistry Status: Acute Assessment and Plan: Creatinine was 1.6 yesterday, 1.5 today. BUN actually coming down a bit. Hepatorenal syndrome is not likely in this scenario, not a concern at this particular time Plan will schedule paracentesis. Subjective Date/time seen: Dc Pizano is a 72 year old male? was brought here from home because of severe weakness.? He lives alone.? He states that he gets this food delivered and is fairly independent of was becoming very weak.? He cannot actually recall all circumstances of him coming here but apparently somebody went to check on him and he could not get out of the bathtub.? He states that his appetite has dropped off lately.? He has become distended in the abdomen over the past few weeks and also has more swelling in his right lower extremity.? He has had a left leg amputation in the past? CT scan showed a large amount of ascites and what looks like cirrhosis.? He states he has no past history of liver disease jaundice, or hepatitis.? He denies excessive bruising.? He states that he does not drink but used to enjoy some [place] whiskey.? He denies any family history of liver disease he denies itching or dark urine.? Issues that he has never been jaundiced. 06/08/22 07:46 he is resting, comfortable and arousable. He denies any significant pain but of course is still uncomfortable from abdominal distension. I told that he will have a paracentesis today. Review of Systems Review of Systems: All systems reviewed & are unremarkable except as noted in HPI and below Exam Const: General: chase
[2022-06-08] MEDS: SERTRALINE HCL 25 MG TABLET PO (09:25)
[2022-06-08] MEDS: TAMSULOSIN HCL 0.4 MG CAPSULE PO (09:25)
[2022-06-08] MEDS: VERAPAMIL HCL 120 MG TABLET IMMED RELEASE PO (09:25)
[2022-06-08 13:56] LABS: Appearance Peritoneal Fluid Cloudy (Clear); Color Peritoneal Fluid Yellow (Colorless); Lymphocytes Peritoneal Fluid 12 %; Macrophages Peritoneal Fluid 31 %; Mesothelial Cells Peritoneal Fluid 19 %; Neutrophils Peritoneal Fluid 38 % (0-25); Nucleated Cells Peritoneal Flu 17 /uL (0-500); RBC Peritoneal Fluid 17 /uL (0-100000); Source Peritoneal Fluid Peritoneal Fluid
[2022-06-08 15:10] VITALS: BP 129/86; PULSE 56; RESP 14; TEMP 36.4; O2SAT 97
--- NOTE | 2022-06-08 15:51 | PM.IMPN ---
Progress Note: A&P Assessment and Plan (1) Acute UTI: Code(s): N39.0 - Urinary tract infection, site not specified Status: Acute Assessment and Plan: Urinalysis grossly abnormal on admission. Patient has history of Pseudomonas UTI in April 2022. Repeat urine culture with growth of 5000-34251 CFU Pseudomonas. Continue with IV Levaquin which is appropriate based on susceptibility report. No leukocytosis or fever. (2) Cirrhosis: Code(s): K74.60 - Unspecified cirrhosis of liver Status: Acute Assessment and Plan: New diagnosis. CT of the abdomen/pelvis revealed probable cirrhotic liver and patient has significant ascites as described below. Appreciate GI consultation. Patient will undergo diagnostic and therapeutic paracentesis today. Etiology for cirrhosis unclear. Patient has no history of heavy alcohol use. Hepatitis panel negative Additional evaluation pending including workup for hemochromatosis. (3) Ascites: Code(s): R18.8 - Other ascites Status: Acute Assessment and Plan: CT of the abdomen/pelvis revealed large amount of abdominopelvic ascites with probable cirrhotic liver. Paracentesis today with results pending (4) Generalized weakness: Code(s): R53.1 - Weakness Status: Acute Assessment and Plan: Presented with worsening progressive weakness. Suspect due to overall physical deconditioning worsened by acute infection. Appreciate PT/OT eval. Implement fall precautions. CK was only minimally elevated, not felt to be significant. B12 and folate within normal limits. (5) Cellulitis of right lower extremity: Code(s): L03.115 - Cellulitis of right lower limb Status: Acute Assessment and Plan: Right lower extremity markedly erythematous, edematous, and warm to palpation. Weeping serous fluid. Improved on exam today. Continue IV Ancef. CRP improving. Venous Doppler negative for DVT. Appreciate wound care recommendations. Elevate the extremity. Supportive care. (6) Scrotal edema: Code(s): N50.89 - Other specified disorders of the male genital organs Status: Acute Assessment and Plan: Noted on exam to have scrotal edema. Patient is asymptomatic. Scrotal ultrasound negative for mass or torsion, revealed marked diffuse scrotal wall edema. Likely due to abdominopelvic ascites. See plan as above. (7) Urinary retention: Code(s): R33.9 - Retention of urine, unspecified Status: Acute Assessment and Plan: Patient noted to have decreased urine output yesterday, bladder scan completed which revealed 1800 cc. Webb catheter was initiated with about 200 cc urine output. Suspect that ascites fluid was being picked up on the bladder scan. No concerns for acute retention at this time per Urology recommendations. I discussed the case with Dr. Mathur. Plan for voiding trial tomorrow. Continue Flomax (8) Elevated lactic acid level: Code(s): R79.89 - Other specified abnormal findings of blood chemistry Status: Acute Assessment and Plan: Lactic acid was 3.3 on presentation. Improved with IV fluids to 2.5. IV fluids discontinued subsequently due to ascites and edema. He is not acidotic and serum bicarb is 31. (9) Hyponatremia: Code(s): E87.1 - Hypo-osmolality and hyponatremia Status: Acute Assessment and Plan: Sodium slightly decreased. This is felt to be secondary to cirrhosis. Continue to monitor sodium levels (10) Abnormal CT scan: Code(s): R93.89 - Abnormal findings on diagnostic imaging of other specified body structures Status: Acute Assessment and Plan: CT of the abdomen/pelvis revealed hyperdense material of the right lung base, concerning for possible aspiration. Patient denies dysphagia. No concerning symptoms for pneumonia. Completed speech therapy evaluation with no evidence of aspiration. He c
[2022-06-08 20:00] VITALS: O2SAT 98
[2022-06-08 22:33] VITALS: BP 92/52; PULSE 62; RESP 16; TEMP 36.6; O2SAT 98
[2022-06-09] VITALS (9 sets, daily range): BP systolic 90–103; BP diastolic 53–69; PULSE 61–70; RESP 14–28; TEMP 36.2–36.6; O2SAT 95–99
[2022-06-09 06:29] LABS: Hematocrit 32.7 % (42.0-52.0); Hemoglobin 11.1 g/dL (14.0-18.0); Immature Platelet Fraction Pct 3.8 % (0.9-11.2); Mean Corpuscular HGB Conc 33.9 g/dl (32-36); Mean Corpuscular Hemoglobin 33.4 pg (26-34); Mean Corpuscular Volume 98.5 fl (80-100); Mean Platelet Volume 10.3 fl (7.4-10.4); Platelet Count Result 144 k/mm3 (150-375); Red Blood Count 3.32 M/mm3 (4.6-6.20); Red Cell Distribution Width 14.5 % (11.5-14.5); White Blood Count 6.2 K/mm3 (4.5-10.0)
[2022-06-09 06:33] LABS: Alanine Aminotransferase 22 U/L (6-50); Albumin Level 2.1 g/dL (3.5-5.1); Alkaline Phosphatase 86 U/L (38-126); Anion Gap 1 mmol/L (8-16); Aspartate Amino Transferase 38 U/L (17-59); Bilirubin,Total 0.8 mg/dL (0.2-1.3); Blood Urea Nitrogen 41 mg/dL (9-20); Calcium 7.2 mg/dL (8.4-10.2); Carbon Dioxide 31 mmol/L (22-30); Chloride 101 mmol/L (98-107); Estimated CRCL calculation 44 ml/min; Estimated Glomerular Filt Rate 54; Glucose 90 mg/dL (65-110); Potassium 3.4 mmol/L (3.4-5.0); Sodium 133 mmol/L (137-145)
[2022-06-09] MEDS: LACTATED RINGERS 1,000 ML 150 ML IV CONT (07:14)
--- NOTE | 2022-06-09 07:21 | WPDANESEPPF ---
Anes - Initial Pre Proc Eval Procedure: Operation Date: 06/09/22 07:30 Proposed Procedures p Esophagogastroduodenoscopy - Tom Workman MD Date/Time: 06/09/22 07:21 Surgeon: Kayla Yates PA-C Pre Op Diagnosis: UTI, SIRS Patient Data Age: 72 Gender: M Height: 1.78 m Weight: 70 kg Last Vital Signs Temp 97.5 F L 06/09/22 07:12 Pulse 69 06/09/22 07:12 Resp 17 06/09/22 07:12 BP 103/61 06/09/22 07:12 Pulse Ox 97 06/09/22 07:12 O2 Del Method Room Air 06/09/22 07:12 Allergies Allergy/AdvReac Type Severity Reaction Status Date / Time No Known Allergies Allergy Verified 06/09/22 07:04 Home Medications Medication Instructions Recorded Confirmed Type tamsulosin 0.4 mg capsule 0.4 mg PO DAILY 03/28/21 06/06/22 History verapamil 120 mg tablet 120 mg PO DAILY 03/28/21 06/06/22 History cephalexin 500 mg capsule 500 mg PO TID uti 06/06/22 06/06/22 History cholecalciferol (vitamin D3) 125 mcg PO WEEKLY 06/06/22 06/06/22 History meclizine 25 mg tablet 25 mg PO TID 06/06/22 06/06/22 History sertraline 25 mg tablet 25 mg PO DAILY 06/06/22 06/06/22 History Laboratory Tests 06/07/22 06/08/22 06/08/22 15:51 06:46 12:42 WBC RBC Hgb Hct MCV MCH MCHC RDW Plt Count MPV % Immature Plt Fraction Sodium 128 mmol/L L mmol/L (137-145) Potassium 3.5 mmol/L mmol/L (3.4-5.0) Chloride 97 mmol/L L mmol/L (98-107) Carbon Dioxide 31 mmol/L H mmol/L (22-30) Anion Gap 0 mmol/L L mmol/L (8-16) BUN 47 mg/dL H mg/dL (9-20) Creatinine 1.50 mg/dL H mg/dL (0.7-1.3) Estim Creat Clear Calc 39 ml/min ml/min Estimated GFR 46 L (59 - ) Glucose 87 mg/dL mg/dL (65-110) Calcium 7.6 mg/dL L mg/dL (8.4-10.2) Magnesium 1.9 mg/dL mg/dL (1.6-2.3) TIBC 161 ug/dL L ug/dL (265-497) % Saturation 14 % L % (20-50) Total Bilirubin 0.8 mg/dL mg/dL (0.2-1.3) AST 55 U/L U/L (17-59) ALT 36 U/L U/L (6-50) Alkaline Phosphatase 87 U/L U/L (38-126) C-Reactive Protein 6.1 mg/dL H mg/dL (<1.0) Total Protein 5.0 g/dL L g/dL (6.3-8.2) Albumin 2.3 g/dL L g/dL (3.5-5.1) Peritoneal Source Peritoneal fluid Peritoneal Color Yellow (Colorless) Peritoneal Appearance Cloudy A (Clear) Peritoneal RBC 17 /uL /uL ([id number]) Periton Nuc Cells 17 /uL /uL (0-500) Periton Neutrophils 38 % H % (0-25) Periton Lymphocytes 12 % % Periton Mesothelial 19 % % Periton Macrophages 31 % % Peritoneal Tot Protein Peritoneal Albumin Peritoneal LDH Peritoneal Glucose Peritoneal Amylase 06/08/22 06/09/22 06/09/22 12:42 06:00 06:00 WBC 6.2 K/mm3 K/mm3 (4.5-10.0) RBC 3.32 M/mm3 L M/mm3 (4.6-6.20) Hgb 11.1 g/dL L g/dL (14.0-18.0) Hct 32.7 % L % (42.0-52.0) MCV 98.5 fl fl (80-100) MCH 33.4 pg pg (26-34) MCHC 33.9 g/dl g/dl (32-36) RDW 14.5 % % (11.5-14.5) Plt Count 144 k/mm3 L k/mm3 (150-375) MPV 10.3 fl fl (7.4-10.4) % Immature Plt Fraction 3.8 % % (0.9-11.2) Sodium 133 mmol/L L mmol/L (137-145) Potassium 3.4 mmol/L mmol/L (3.4-5.0) Chloride 101 mmol/L mmol/L (98-107) Carbon Dioxide 31 mmol/L H mmol/L (22-30) Anion Gap 1 mmol/L L mmol/L (8-16) BUN 41 mg/dL H mg/dL (9-20) Creatinine 1.30 mg/dL mg/dL (0.7-1.3) Estim Creat Clear Calc 44 ml/min ml/min Estimated GFR 54 L (59 - ) Glucose
[2022-06-09] MEDS: SERTRALINE HCL 25 MG TABLET PO (08:50)
[2022-06-09] MEDS: VERAPAMIL HCL 120 MG TABLET IMMED RELEASE PO (08:50)
[2022-06-09] MEDS: TAMSULOSIN HCL 0.4 MG CAPSULE PO (08:50)
[2022-06-09] MEDS: ENOXAPARIN 40 MG/0.4 ML SYRINGE SUB-Q (08:50)
[2022-06-09] MEDS: SPIRONOLACTONE 50 MG TABLET PO (09:05)
--- NOTE | 2022-06-09 09:45 | PM.IMPN ---
Progress Note: A&P Assessment and Plan (1) Acute UTI: Code(s): N39.0 - Urinary tract infection, site not specified Status: Acute Assessment and Plan: Urinalysis grossly abnormal on admission. history of Pseudomonas UTI in April 2022. urine culture with growth of [id number] CFU Pseudomonas. Levaquin stopped at this time No leukocytosis or fever. (2) Cirrhosis: Code(s): K74.60 - Unspecified cirrhosis of liver Status: Acute Assessment and Plan: New diagnosis. CT of the abdomen/pelvis revealed probable cirrhotic liver and patient has significant ascites as described below. Appreciate GI consultation. diagnostic and therapeutic paracentesis 06/08/22 drained 5000 mL. Etiology for cirrhosis unclear. no history of heavy alcohol use. Hepatitis panel negative Additional evaluation pending including workup for hemochromatosis. preliminary results on the peritoneal fluid appear to be negative gram stain indicates no white blood cells seen EGD performed to check for esophageal varices, nothing found in the EGD (3) Ascites: Code(s): R18.8 - Other ascites Status: Acute Assessment and Plan: CT of the abdomen/pelvis revealed large amount of abdominopelvic ascites with probable cirrhotic liver. Paracentesis with 5L off see above (4) Generalized weakness: Code(s): R53.1 - Weakness Status: Acute Assessment and Plan: Presented with worsening progressive weakness. Suspect due to overall physical deconditioning worsened by acute infection. Appreciate PT/OT eval. Implement fall precautions. CK was only minimally elevated, not felt to be significant. B12 and folate within normal limits. (5) Cellulitis of right lower extremity: Code(s): L03.115 - Cellulitis of right lower limb Status: Acute Assessment and Plan: Presented with Right lower extremity markedly erythematous, edematous, and warm to palpation, and Weeping serous fluid. Appears better today Continue IV Ancef, convert to PO Augmentin CRP improving. Venous Doppler negative for DVT. Appreciate wound care recommendations, orders in the chart Elevate the extremity. Supportive care. (6) Scrotal edema: Code(s): N50.89 - Other specified disorders of the male genital organs Status: Acute Assessment and Plan: Noted on exam to have scrotal edema. Patient is asymptomatic. Scrotal ultrasound negative for mass or torsion, revealed marked diffuse scrotal wall edema. Likely due to abdominopelvic ascites. See plan as above. (7) Urinary retention: Code(s): R33.9 - Retention of urine, unspecified Status: Acute Assessment and Plan: Patient noted to have decreased urine output, bladder scan completed which revealed 1800 cc. Webb catheter was initiated with about 200 cc urine output. Suspect that ascites fluid was being picked up on the bladder scan. No concerns for acute retention at this time per Urology recommendations. Plan for voiding trial on 06/09/22 Continue Flomax trend urine output (8) Elevated lactic acid level: Code(s): R79.89 - Other specified abnormal findings of blood chemistry Status: Acute Assessment and Plan: Lactic acid was 3.3 on presentation. Improved with IV fluids to 2.5. IV fluids discontinued subsequently due to ascites and edema. Not acidotic and serum bicarb is 31. (9) Hyponatremia: Code(s): E87.1 - Hypo-osmolality and hyponatremia Status: Acute Assessment and Plan: Sodium noted to be low, currently better at 133 Most likely secondary to cirrhosis. Trend sodium Adjust therapy as indicated (10) Abnormal CT scan: Code(s): R93.89 - Abnormal findings on diagnostic imaging of other specified body structures
--- NOTE | 2022-06-09 14:42 | PCDIET ---
Brief nutrition note. New findings of pressure injury: Unstageable to sacrum. John ordered BID for additional 90 kcals and 2.5 g protein each to promote wound healing. Follow up as planned. Lyn Arellano RD LDN
[2022-06-09] MEDS: FERROUS SULFATE 324 MG TABLET PO (16:39)
[2022-06-09] MEDS: AMOXICILLIN/CLAVULANATE K 875-125 MG TAB 1 TABLET PO (20:56)
[2022-06-10 06:09] LABS: Basophils Percent Auto 0.2 % (0.2-1.2); Eosinophils Absolute Auto 0.1 K/mm3 (0-0.3); Eosinophils Percent Auto 1.5 % (0-4.4); Hematocrit 34.7 % (42.0-52.0); Hemoglobin 11.8 g/dL (14.0-18.0); Immature Granulocyte Absolute 0.05 K/mm3 (0.00-0.031); Immature Granulocyte Percent A 0.8 % (0-0.5); Lymphocytes Absolute Auto 0.77 K/mm3 (0.9-3.2); Lymphocytes Percent Auto 11.6 % (18.3-44.2); Mean Corpuscular Hemoglobin 33.3 pg (26-34); Mean Platelet Volume 10.3 fl (7.4-10.4); Monocytes Absolute Auto 1.3 K/mm3 (0.1-0.6); Monocytes Percent Auto 20.2 % (2.6-8.5); Neutrophils Absolute Auto 4.4 K/mm3 (1.3-6.7); Neutrophils Percent Auto 65.7 % (45.5-73.1); Platelet Count Result 148 k/mm3 (150-375); Red Blood Count 3.54 M/mm3 (4.6-6.20); Red Cell Distribution Width 14.1 % (11.5-14.5); White Blood Count 6.7 K/mm3 (4.5-10.0)
[2022-06-10 06:26] LABS: Alanine Aminotransferase 16 U/L (6-50); Albumin Level 2.4 g/dL (3.5-5.1); Alkaline Phosphatase 85 U/L (38-126); Anion Gap 2 mmol/L (8-16); Aspartate Amino Transferase 35 U/L (17-59); Blood Urea Nitrogen 39 mg/dL (9-20); Calcium 7.5 mg/dL (8.4-10.2); Carbon Dioxide 29 mmol/L (22-30); Chloride 96 mmol/L (98-107); Estimated CRCL calculation 52 ml/min; Estimated Glomerular Filt Rate > 60; Glucose 87 mg/dL (65-110); Magnesium 1.7 mg/dL (1.6-2.3); Potassium 3.6 mmol/L (3.4-5.0); Sodium 127 mmol/L (137-145)
[2022-06-10 06:37] VITALS: BP 106/72; PULSE 77; RESP 16; TEMP 36.6; O2SAT 18
[2022-06-10] MEDS: SPIRONOLACTONE 50 MG TABLET PO (09:08)
[2022-06-10] MEDS: ENOXAPARIN 40 MG/0.4 ML SYRINGE SUB-Q (09:08)
[2022-06-10] MEDS: SERTRALINE HCL 25 MG TABLET PO (09:08)
[2022-06-10] MEDS: AMOXICILLIN/CLAVULANATE K 875-125 MG TAB 1 TABLET PO ×2 (09:08→20:05)
[2022-06-10] MEDS: TAMSULOSIN HCL 0.4 MG CAPSULE PO (09:08)
[2022-06-10] MEDS: FERROUS SULFATE 324 MG TABLET PO ×2 (09:08→17:08)
[2022-06-10] MEDS: VERAPAMIL HCL 120 MG TABLET IMMED RELEASE PO (09:08)
[2022-06-10] MEDS: MAGNESIUM SULF 4 GM/WATER100ML 4 GM/100 ML BAG IVPB (09:11)
--- NOTE | 2022-06-10 11:00 | PM.DS ---
DS: Admitting Diagnosis Discharge Date 06/10/22 1100 Admitting Diagnosis UTi, new onset cirrhosis, cellulitis of the lower extremity DS: Discharge Diagnosis Discharge Diagnosis (1) Acute UTI: Code(s): N39.0 - Urinary tract infection, site not specified Status: Acute Assessment and Plan: Urinalysis grossly abnormal on admission. history of Pseudomonas UTI in April 2022. urine culture with growth of 5000-26132 CFU Pseudomonas. Levaquin stopped at this time No leukocytosis or fever. (2) Cirrhosis: Code(s): K74.60 - Unspecified cirrhosis of liver Status: Acute Assessment and Plan: New diagnosis. CT of the abdomen/pelvis revealed probable cirrhotic liver and patient has significant ascites as described below. Appreciate GI consultation. diagnostic and therapeutic paracentesis 06/08/22 drained 5000 mL. Etiology for cirrhosis unclear. no history of heavy alcohol use. Hepatitis panel negative Additional evaluation pending including workup for hemochromatosis. preliminary results on the peritoneal fluid appear to be negative gram stain indicates no white blood cells seen (3) Ascites: Code(s): R18.8 - Other ascites Status: Acute Assessment and Plan: CT of the abdomen/pelvis revealed large amount of abdominopelvic ascites with probable cirrhotic liver. Paracentesis with 5L off see above (4) Generalized weakness: Code(s): R53.1 - Weakness Status: Acute Assessment and Plan: Presented with worsening progressive weakness. Suspect due to overall physical deconditioning worsened by acute infection. Appreciate PT/OT eval. Implement fall precautions. CK was only minimally elevated, not felt to be significant. B12 and folate within normal limits. (5) Cellulitis of right lower extremity: Code(s): L03.115 - Cellulitis of right lower limb Status: Acute Assessment and Plan: Presented with Right lower extremity markedly erythematous, edematous, and warm to palpation, and Weeping serous fluid. Appears better today Continue IV Ancef, convert to PO Augmentin CRP improving. Venous Doppler negative for DVT. Appreciate wound care recommendations, orders in the chart Elevate the extremity. Supportive care. (6) Scrotal edema: Code(s): N50.89 - Other specified disorders of the male genital organs Status: Acute Assessment and Plan: Noted on exam to have scrotal edema. Patient is asymptomatic. Scrotal ultrasound negative for mass or torsion, revealed marked diffuse scrotal wall edema. Likely due to abdominopelvic ascites. See plan as above. (7) Urinary retention: Code(s): R33.9 - Retention of urine, unspecified Status: Acute Assessment and Plan: Patient noted to have decreased urine output, bladder scan completed which revealed 1800 cc. Webb catheter was initiated with about 200 cc urine output. Suspect that ascites fluid was being picked up on the bladder scan. No concerns for acute retention at this time per Urology recommendations. Plan for voiding trial on 06/09/22 Continue Flomax trend urine output (8) Elevated lactic acid level: Code(s): R79.89 - Other specified abnormal findings of blood chemistry Status: Acute Assessment and Plan: Lactic acid was 3.3 on presentation. Improved with IV fluids to 2.5. IV fluids discontinued subsequently due to ascites and edema. Not acidotic and serum bicarb is 31. (9) Hyponatremia: Code(s): E87.1 - Hypo-osmolality and hyponatremia Status: Acute Assessment and Plan: Sodium noted to be low, currently better at 133 Most likely secondary to cirrhosis. Trend sodium Adjust therapy as indicated (10) Abnormal CT scan: Code(s): R93.89 - Abn
[2022-06-10] MEDS: LOPERAMIDE HCL 2 MG CAPSULE 4 MG PO (11:41)
--- NOTE | 2022-06-10 13:03 | WPDGIPROGNO ---
Progress Note: A&P Assessment and Plan (1) Abnormal CT scan: Code(s): R93.89 - Abnormal findings on diagnostic imaging of other specified body structures Status: Acute Assessment and Plan: the scan reveals small liver which appears micronodular. There is also a large amount of ascites. Paracentesis will be done today. (2) Cirrhosis: Code(s): K74.60 - Unspecified cirrhosis of liver Status: Acute Assessment and Plan: This diagnosis is new to him. He denies any prior history of liver disease. He had been a drinker of [employer] but states that he never drink a lot. We will investigate with serology for hepatitis and other possible causes of liver disease INR is normal but albumin is low at 2.5 Of note, his serum ferritin level was elevated at 834. This could reflect hemochromatosis. I will obtain iron studies. If iron saturation is high, then we will obtain genetics for hemochromatosis. (3) Ascites: Code(s): R18.8 - Other ascites Status: Acute Assessment and Plan: He says that this is a new occurrence for him. I told that we will schedule him for paracentesis to remove up to 5 L of possible. This will be a diagnostic paracentesis 06/08/2022 Diagnostic paracentesis will be done this morning 5 L were removed with paracentesis. Diagnostically it is a transudate. He will be started on spironolactone 50 mg a day. Depending on his weight he may need a higher dose as well as Lasix. I do not want to start furosemide today because his blood pressure has been low soft (4) Weakness: Code(s): R53.1 - Weakness Status: Acute Assessment and Plan: he admits that he has not been eating much last several days and had not been able to get around the house. He is eating fairly well here. He states that he does not eat well at home because it is up to him to prepare food. He does have food delivered by [employer] or other agencies (5) Urinary retention: Code(s): R33.9 - Retention of urine, unspecified Status: Acute Assessment and Plan: A straight cath was placed and 1800 cc of urine empty from his bladder (6) Hyponatremia: Code(s): E87.1 - Hypo-osmolality and hyponatremia Status: Acute Assessment and Plan: Initial sodium was 127 which is a normal range for individuals with cirrhosis. It is now up to 131. we must avoid over hydrating him to to avoid worsening his ascites. Sodium is stable at 1:28 a.m. and then a reasonable range for a cirrhotic. (7) Elevated serum creatinine: Code(s): R79.89 - Other specified abnormal findings of blood chemistry Status: Acute Assessment and Plan: Creatinine was 1.6 yesterday, 1.5 today. BUN actually coming down a bit. Hepatorenal syndrome is not likely in this scenario, not a concern at this particular time Plan from my perspective he can be discharged. I will see him in the office in about 2 weeks. His disposition and treatment plan was discussed with Yonny Chiu Subjective Date/time seen: 06/10/22 13:03 no new complaints. He is comfortable. He feels better since his paracentesis. We discussed the fact that he has to restrict sodium and he will be on diuretics for his ascites. I will see him in the office in 10 days or so. H pylori is negative, therefore he would not need antibiotics for that. Because of the multiple erosions and tiny ulcers we will start him on pantoprazole and keep him on that for least 6-8 weeks. Exam Const: General: alert Nutritional Appearance: average body habitus Orientation/consciousness: patient oriented x3 Eyes: Sclera: sclerae normal Resp: Auscultation: clear to auscultation bilaterally Cardio: Rhythm: regular rhythm GI: Inspection: distended GI Palp: Yes Soft to palpation, Yes Tenderness to palpation present (GI) ( Mildly tender), No Guarding due to palpation present (GI), Yes No hepatosplenomega
[2022-06-10] MEDS: LOPERAMIDE HCL 2 MG CAPSULE PO (13:53)
[2022-06-10 14:00] VITALS: BP 100/65; PULSE 72; RESP 20; TEMP 35.9; O2SAT 100
[2022-06-10] MEDS: DIPHENOXYLATE/ATROPINE (*CRX) 2.5 MG TABLET 2 TABLET PO (15:34)
[2022-06-10] MEDS: SACCHAROMYCES BOULARDII 250 MG CAPSULE PO ×2 (16:34→20:05)
[2022-06-10 20:00] VITALS: O2SAT 100
[2022-06-10] MEDS: PANTOPRAZOLE 40 MG TABLET PO (20:05)
[2022-06-11 22:13] LABS: Albumin Peritoneal Fluid 0.6 g/dL
[2022-06-12 19:25] LABS: Amylase Peritoneal Fluid <10 U/L
[2022-06-13 20:00] LABS: Glucose Peritoneal Fluid 103 mg/dL; LDH Peritoneal Fluid 45 U/L (<63); Total Protein Peritoneal Fluid <3.0 g/dL
== END 2022-06-10 20:32 | DRG 433 ==
LOC: ANHED 06-06 04:44 → ANH3MEDSUR 06-06 05:29
PROVIDERS: Internal Medicine Gastroenterology; Physician Assistant; Admitting Provider Internal Medicine; Emergency Provider Emergency Medicine; Visit Provider Nurse Practitioner
PROC: 0DJ08ZZ Inspection of Upper Intestinal Tract, Via Natural or Artificial Opening Endoscopic (ICD-10-PCS; CPT 43235; principal; 2022-06-09 07:30)
DX: K74.60 Unspecified cirrhosis of liver (principal); E87.1 Hypo-osmolality and hyponatremia; N39.0 Urinary tract infection, site not specified; L03.115 Cellulitis of right lower limb; R18.8 Other ascites; I10 Essential (primary) hypertension; D50.9 Iron deficiency anemia, unspecified; K22.2 Esophageal obstruction; K29.70 Gastritis, unspecified, without bleeding; K21.00 Gastro-esophageal reflux disease with esophagitis, without bleeding; K26.9 Duodenal ulcer, unspecified as acute or chronic, without hemorrhage or perforation; E78.00 Pure hypercholesterolemia, unspecified; E03.8 Other specified hypothyroidism; N20.0 Calculus of kidney; N50.89 Other specified disorders of the male genital organs; F17.290 Nicotine dependence, other tobacco product, uncomplicated; B96.5 Pseudomonas (aeruginosa) (mallei) (pseudomallei) as the cause of diseases classified elsewhere; Z20.822 Contact with and (suspected) exposure to COVID-19; Z85.830 Personal history of malignant neoplasm of bone; Z89.622 Acquired absence of left hip joint
CPT/HCPCS: 36415; 49083; 71045; 74176; 76775; 76870; 80053; 80074; 81001; 82042; 82140; 82150; 82550; 82607; 82728; 82746; 82945; 83540; 83550; 83605; 83615; 83735; 84145; 84157; 84295; 84439; 84443; 84480; 84484; 85025; 85027; 85055; 85610; 85730; 86140; 87040; 87070; 87075; 87077; 87081; 87086; 87088; 87186; 87205; 87637; 88108; 88305; 88312; 88342; 89051; 92610; 93005; 93971; 93976; 96360; 97110; 97161; 97166; 97530; 99285; A9270; J0690; J1650; J1956; J2704; J3475; J7030; J7120

== ENCOUNTER 2022-06-15 19:14 | Outpatient (NON) | payer MEDICARE, BC, SELFPAY ==
[2022-06-15 19:51] LABS: Appearance Urine Slightly Cloudy (Clear); Bilirubin Urine Negative (Negative); Blood Urine 3+ (Negative); Color Urine Yellow (Yellow); Glucose Urine UA Negative (Negative); Ketones Urine Negative (Negative); Leukocyte Esterase Ur 1+ LEU/UL (Negative); Nitrate Urine Negative (Negative); Protein Urine Negative (Negative); Urobilinogen Urine 0.2 mg/dL (<2.0)
[2022-06-15 19:58] LABS: Bacteria Urine 1+ /hpf; Mucus Urine Few /lpf; RBC Urine >75 /hpf (0-2); Squamous Epithelial Cell Urine Many /hpf (Few); WBC Clumps Urine Present /HPF; WBC Urine 51-75 /hpf
[2022-06-15 20:01] LABS: Add Urine Microscopic? YES
== END 2022-06-15 19:15 | disposition home or self-care (01) ==
DX: K74.60 Unspecified cirrhosis of liver (principal); R41.82 Altered mental status, unspecified
CPT/HCPCS: 81001; 87086

== ENCOUNTER 2022-06-16 18:32 | Inpatient (IN) | payer MEDICARE, BC, SELFPAY ==
--- NOTE | ~2022-06-16 | CT_ITS ---
EXAMINATION: CT brain wo con DATE: 06/16/2022 19:15 INDICATION: Altered mental status. TECHNIQUE: Computed tomography (CT) of the head was performed without intravenous contrast. The mA wa s adjusted according to patient size. Iterative reconstruction technique was employed. The dose-lengt h product was 756.67 mGy-cm. COMPARISON: None FINDINGS: Motion artifact is noted. There are scattered areas of low attenuation in the cerebral whit e matter. There is no intracranial hemorrhage, acute infarction, or abnormal intracranial mass lesion . The ventricles are normal in size. There are likely changes of ocular lens replacement surgeries. T here is mild mucosal thickening in the ethmoid sinuses. The mastoid air cells are normal. IMPRESSION: 1. Mild nonspecific cerebral white matter disease, which likely represents chronic small vessel ische chiquita disease. Reviewed, dictated and finalized at location A. RNATIONAL OPERATIONS MANAGER IMPRESSION: 1. Mild nonspecific cerebral white matter disease, which likely represents editor marquez small vessel ischemic disease.
--- NOTE | ~2022-06-16 | XR_ITS ---
EXAMINATION: XR chest 1V portable DATE: 06/16/2022 19:38 INDICATION: Altered mental status. TECHNIQUE: A single frontal view of the chest was obtained. COMPARISON: Chest single view 06/06/22 FINDINGS: Again seen is elevation of right hemidiaphragm. There are bilateral perihilar airspace opac ities. No pleural effusion or pneumothorax. The heart size is normal. IMPRESSION: 1. Bilateral perihilar airspace opacities, consistent with pneumonia versus mild pulmonary edema. Reviewed, dictated and finalized at location A. N RESOURCES INTERN IMPRESSION: 1. Bilateral perihilar airspace opacities, consistent with pneumonia versus mil d pulmonary edema.
--- NOTE | ~2022-06-16 | US_ITS ---
EXAMINATION: US paracentesis abd w/image DATE: 06/17/2022 13:12 INDICATION: Ascites. TECHNIQUE: The procedure and its risks and benefits were discussed with the patient's daughter and po wer of senior trial attorney. Potential risks discussed included bleeding and infection. The skin was prepped and draped in sterile fashion. 1% lidocaine was used for local anesthesia. Under ultrasound guidance, a 5 Fr catheter with trochar was advanced into the ascites in the left lower quadrant. Fluid was aspirat ed into vacuum bottles. The catheter was removed, and a dressing was applied. There were no immediate complications. FINDINGS: Ultrasound images demonstrate ascites and the catheter within the fluid. IMPRESSION: 1. Successful ultrasound-guided paracentesis yielding 5000 mL of clear tamera-colored fluid. Reviewed, dictated and finalized at location A. IOGRAPHIC SERVICES SPECIALIST IMPRESSION: 1. Successful ultrasound-guided paracentesis yielding 5000 mL of clear tamera-c olored fluid.
--- NOTE | ~2022-06-16 | CT_ITS ---
EXAMINATION: CT abdomen pelvis w con DATE: 06/16/2022 20:59 INDICATION: Cirrhosis of the liver. TECHNIQUE: Computed tomography (CT) of the abdomen and pelvis was performed with 100 mL Omnipaque 350 intravenous contrast. Automated exposure control and iterative reconstruction technique were employe d. The dose-length product was 1670.47 mGy-cm. COMPARISON: CT abdomen and pelvis 06/06/2022 FINDINGS: The visualized portions of the lung bases demonstrate moderate-sized pleural effusions. The re is septal thickening bilaterally. There are groundglass opacities in the upper lobes. There is dep endent passive atelectasis bilaterally. Calcified right lung nodules are consistent with old granulom atous disease. The heart size is normal. There are coronary artery calcifications. No pericardial eff usion. The liver demonstrates a nodular surface contour, consistent with cirrhosis. There is a 7 mm c yst in the liver. The spleen is normal in size. The gallbladder is normal. There are calcifications i n the pancreas, consistent with chronic pancreatitis. There is a small sliding hiatal hernia. The adr enal glands are normal. There is cortical thinning of the kidneys. There are 3 stones in right kidney measuring up to 14 mm. There are 5 stones in left kidney measuring up to 14 mm. There is diverticulo sis of the colon without evidence of diverticulitis. There are no dilated loops of bowel. The appendi x is normal. Paraesophageal varices are noted. There is a large volume of ascites. There is a [address] one in the bladder. Body wall edema is noted. The left-sided pelvic bones are absent. There are bridg ing endplate osteophytes at multiple levels in the spine, consistent with diffuse idiopathic skeletal hyperostosis (DISH). IMPRESSION: 1. Diffuse lung disease, likely moderate pulmonary edema. 2. Moderate-sized pleural effusions. 3. Large volume of ascites. 4. Cirrhosis of the liver with portal venous hypertension. Reviewed, dictated and finalized at location A. OR COST ACCOUNTANT
[2022-06-16 18:25] VITALS: BP 103/60; PULSE 76; RESP 19; O2SAT 100
--- NOTE | 2022-06-16 18:34 | ECG_ITS ---
Measurements Intervals [place] Rate: 70 P: MO: 0 QRS: 1 QRSD: 106 T: 76 QT: 396 QTc: 429 Interpretive Statements NORMAL SINUS RHYTHM LOW QRS VOLTAGE [QRS DEFLECTION < 0.5/1.0 mV IN LIMB/CHEST LEADS] POSSIBLE ANTERIOR MYOCARDIAL INFARCTION , PROBABLY OLD [30 ms Q WAVE IN V3/V4, OR R < 0.2 mV IN V4] ABNORMAL ECG Electronically Signed On 06-17-2022 10:03:32 [employer] by Kevin Benites M.D.
[2022-06-16 18:40] VITALS: PULSE 70
--- NOTE | 2022-06-16 18:54 | ED.AMS ---
HPI - Altered Mental Status General Chief Complaint: Altered Mental Status <YENY Pickard Last Filed: 06/17/22 03:26> Stated Complaint: WORSENING AMS <YENY Pickard Last Filed: 06/17/22 03:26> Time Seen by Provider: 06/16/22 23:16 <YENY Pickard Last Filed: 06/17/22 03:26> Source: patient, family, RN notes reviewed and old records reviewed <YENY Pickard Last Filed: 06/17/22 03:26> Mode of arrival: EMS <YENY Pickard Filed: 06/17/22 03:26> Limitations: clinical condition <YENY Pickard Last Filed: 06/17/22 03:26> History of Present Illness HPI narrative: Patient is a 72-year-old male, with PMHx of L hip disarticulation, cirrhosis, who presents the ED via EMS with report of altered mental status. Per chart review, patient was admitted to the hospital here on 06/06 due to increasing generalized weakness, right lower extremity cellulitis. He was also found to have a UTI and cirrhosis during that time. He underwent paracentesis and had 5 L of fluid drained on 06/08. He was transitioned to [facility] rehab facility upon discharge on 06/10. Patient has been doing physical therapy and doing well up until yesterday into today when he was noted to be increasingly confused. Per nursing notes, patient was reported to be combative and agitated. He had a UA drawn today which was positive for a urinary tract infection. He was given 2 g of Rocephin. Staff wanted an ammonia level drawn, however they were unable to perform at their facility and sent him here for further evaluation of altered mental status. Patient unable to provide any information at this time. Daughter at bedside also assisted in providing information. She reports up until patient's recent admission, he was living on his own, A&O x4, self-sufficient, using crutches. <YENY Pickard Last Filed: 06/17/22 03:26> Related Data Home Medications: Home Medications Medication Instructions Recorded Confirmed tamsulosin 0.4 mg capsule 0.4 mg PO DAILY 03/28/21 06/17/22 verapamil 120 mg tablet 120 mg PO DAILY 03/28/21 06/17/22 sertraline 25 mg tablet 25 mg PO DAILY 06/06/22 06/17/22 enoxaparin 40 mg/0.4 mL 40 mg subcut DAILY 06/17/22 06/17/22 subcutaneous syringe loperamide 2 mg capsule 2 mg PO Q6H PRN Diarrhea 06/17/22 06/17/22 pantoprazole 40 mg tablet,delayed 40 mg PO Q12H 06/17/22 06/17/22 release quetiapine 50 mg tablet 50 mg PO HS 06/17/22 06/17/22 <Liliana Davis PA-C - Last Filed: 06/17/22 03:26> Allergies/Adverse Reactions: Allergies Allergy/AdvReac Type Severity Reaction Status Date / Time No Known Allergies Allergy Verified 06/09/22 07:04 <YENY Pickard Last Filed: 06/17/22 03:26> Review of Systems Review of Systems: ROS unobtainable: Yes unobtainable due to mental status <YENY Pickard Last Filed: 06/17/22 03:26> [facility] Past Medical History Medical History: Medical History Cirrhosis High cholesterol History of high blood pressure Iron deficiency anemia Osteosarcoma <YENY Pickard Last Filed: 06/17/22 03:26> Surgical History Surgical History: Surgical History 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
[2022-06-16 19:10] LABS: Basophils Percent Auto 0.2 % (0.2-1.2); Eosinophils Absolute Auto 0.1 K/mm3 (0-0.3); Eosinophils Percent Auto 0.4 % (0-4.4); Hematocrit 35.5 % (42.0-52.0); Immature Granulocyte Absolute 0.07 K/mm3 (0.00-0.031); Immature Granulocyte Percent A 0.6 % (0-0.5); Lymphocytes Absolute Auto 1.03 K/mm3 (0.9-3.2); Lymphocytes Percent Auto 8.5 % (18.3-44.2); Mean Corpuscular HGB Conc 33.8 g/dl (32-36); Mean Corpuscular Volume 97.5 fl (80-100); Mean Platelet Volume 10.5 fl (7.4-10.4); Monocytes Absolute Auto 1.2 K/mm3 (0.1-0.6); Monocytes Percent Auto 9.9 % (2.6-8.5); Neutrophils Absolute Auto 9.8 K/mm3 (1.3-6.7); Neutrophils Percent Auto 80.4 % (45.5-73.1); Platelet Count Result 285 k/mm3 (150-375); Red Blood Count 3.64 M/mm3 (4.6-6.20); Red Cell Distribution Width 13.8 % (11.5-14.5); White Blood Count 12.2 K/mm3 (4.5-10.0)
[2022-06-16 19:18] LABS: Appearance Urine Slightly Cloudy (Clear); Bilirubin Urine Negative (Negative); Blood Urine 2+ (Negative); Color Urine Yellow (Yellow); Glucose Urine UA Negative (Negative); Ketones Urine Negative (Negative); Leukocyte Esterase Ur Negative LEU/UL (Negative); Nitrate Urine Negative (Negative); Protein Urine Negative (Negative); Specific Grav Ur 1.015 (1.001-1.035); Urobilinogen Urine 0.2 mg/dL (<2.0); pH Urine 5.5 (5.0-9.0)
[2022-06-16 19:19] LABS: Lactic Acid Reflex 2.4 mmol/L (0.7-2.0)
[2022-06-16 19:20] LABS: Alanine Aminotransferase 17 U/L (6-50); Albumin Level 2.8 g/dL (3.5-5.1); Alkaline Phosphatase 98 U/L (38-126); Ammonia < 9 umol/L (9-30); Anion Gap 7 mmol/L (8-16); Aspartate Amino Transferase 30 U/L (17-59); Bilirubin,Total 0.8 mg/dL (0.2-1.3); Blood Urea Nitrogen 47 mg/dL (9-20); Calcium 8.4 mg/dL (8.4-10.2); Carbon Dioxide 28 mmol/L (22-30); Chloride 97 mmol/L (98-107); Estimated Glomerular Filt Rate 42; Glucose 102 mg/dL (65-110); Potassium 4.6 mmol/L (3.4-5.0); Sodium 132 mmol/L (137-145)
[2022-06-16 19:21] LABS: INR 1.1; Partial Thromboplastin Time 32.7 SECONDS (22.3-36.8); Prothrombin Time 14.1 Seconds (11.1-14.7)
[2022-06-16 19:27] LABS: Add Urine Microscopic? YES; Bacteria Urine Trace /hpf; Mucus Urine Rare /lpf; RBC Urine >75 /hpf (0-2); Squamous Epithelial Cell Urine Occasional /hpf (Few)
[2022-06-16] MEDS: LORazepam INJ (*CRX) 2 MG/ML VIAL 0.5 MG IV PUSH (20:06)
[2022-06-16 20:20] VITALS: BP 106/87; PULSE 76; RESP 20; O2SAT 98
--- NOTE | 2022-06-16 20:20 | PC.NURSE ---
Linens changed, clean depends placed, and pt repositioned for comfort. Pt is combative with staff, attempting to hit staff multiple times.
[2022-06-16 20:27] LABS: NT Pro B Type Natriuretic Pept 1630 pg/mL (19.9-100); Troponin I < 0.012 ng/mL (0.000-0.034)
--- NOTE | 2022-06-16 20:53 | PC.NURSE ---
Called [facility] and spoke with Tracy CURRY. Updated her that we are waiting for COVID/flu results as well as CT results. Informed her that I will call back with updated plan of care. No questions or concerns at this time.
[2022-06-16 21:04] LABS: Influenza A QL RT-PCR Negative (Negative); Influenza B QL RT-PCR Negative (Negative); SARS-CoV-2 RNA PCR Negative
--- NOTE | 2022-06-16 21:10 | PC.NURSE ---
Pt's daughter at bedside. Informed her that we are waiting on CT scan to determine plan of care. Daughter reports that pt is confused at baseline but has become more confused and restless over the past 2-3 days. Pt mumbles to himself, cannot follows commands, and becomes agitated when staff attempt to reposition him. He is alert and oriented x0.
[2022-06-16 21:49] VITALS: BP 117/87; PULSE 80; RESP 20; TEMP 36.1; O2SAT 98
[2022-06-16 22:07] LABS: Reflex Lactic Acid Yes or No Add Lactic
--- NOTE | 2022-06-16 22:08 | PC.NURSE ---
Pt's daughter alerted staff that pt has been hitting his arms and legs against the stretcher rails. Skin tears noted to left hand knuckles and left forearm. 2x2 and tegaderm applied. Seizure pads placed on bedrails to prevent further harm.
[2022-06-16 22:12] LABS: Alveolar/Arterial O2 Gradient 38.3 mmHg; Base Excess ABG 1.9 mEq/l (+/-2.0); Carboxyhemoglobin 0.5 % THb (0-2.0); Fractional Inspired Oxygen 21 %; HCO3 ABG 25.5 mEq/l (22.0-26.0); Methemoglobin ABG 0.2 %THb (0-1.5); Oxygen Content ABG 15.7 %vol (16.0-22.0); Oxygen Saturation ABG 94.7 % (95.0-100.0); Oxyhemoglobin 92.8 % THb (90.0-100.0); PCO2 ABG 36.2 mmHg (35.0-45.0); PO2 ABG 68.1 mmHg (80.0-100.0); PO2 FiO2 Ratio Arterial Blood 3.24 %; Reduced Hemoglobin 6.5 %THb (0-5.0); pH ABG 7.465 (7.350-7.450)
[2022-06-16 22:13] LABS: Device ROOM AIR; Modified Allen's Test Pass; Site Drawn LEFT RADIAL
[2022-06-16 22:46] LABS: Lactic Acid 2.5 mmol/L (0.7-2.0)
[2022-06-17 00:05] LABS: Amphetamine Screen Urine Negative (Negative); Barbiturate Screen Urine Negative (Negative); Benzodiazepines Screen Urine Negative (Negative); Cannabinoid Screen Urine Negative (Negative); Cocaine Screen Urine Negative (Negative); Methadone Screen Urine Negative (Negative); Opiate Screen Urine Negative (Negative); Phencyclidine Screen Urine Negative (Negative)
[2022-06-17 00:29] VITALS: BP 105/67; PULSE 78; RESP 20; O2SAT 98
[2022-06-17] MEDS: cefTRIAXone 2 GM in SODIUM CHLORIDE 0.9% IV 100 ML 200 ML IVPB ×2 (00:32→21:59)
--- NOTE | 2022-06-17 01:13 | PM.IMHP ---
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 the patient had recently been admitted to the hospital from 06/06/2022 through 06/10/2022 due to pseudomonal UTI Cellulitis of the right lower extremity and was incidentally found to have cirrhosis of the liver with significant ascites. He had suspected urinary retention with 1.8 L of fluid noted on bladder scan but when Webb catheter was placed only had 200 mL out. This was due to the patient's marked ascites causing a false reading on the bladder scan. The patient's Webb catheter was removed prior to discharge. Patient underwent diagnostic and therapeutic paracentesis during that hospitalization at 5 L removed. Etiology of cirrhosis is unknown. The patient had a UA performed on 06/15/2022 at acute rehab due to suspected UTI. UA was suspicious for UTI but urine culture was negative. The patient had received 2 g of Rocephin IM at acute rehab although is not clear whether this occurred on the for the . Repeat urine culture was sent on the from the ER. Results are pending. Patient was afebrile on presentation to the ER but was markedly altered. The patient had been having worsening confusion for 3 days. The patient is writhing around in bed and mumbles responses that are not appropriate. patient has generalized erythema of his entire body mostly to the dorsal surfaces. Has marked ascites of the abdomen which was read demonstrated on CT scan. diffuse lung disease likely pulmonary edema moderate and moderate-sized pleural effusions with recurrent large volume ascites. Cirrhosis of liver with portal venous hypertension was again noted. The patient had mild leukocytosis. Acute rehab since the patient in for evaluation of the patient's ammonia. His ammonia level was less than 8. Although patient certainly appears acutely ill-appearing and clinically dehydrated with evidence of intervascular volume depletion. Due to the patient's condition use admitted for observation with blood cultures and urine cultures pending. Patient was started on 2 g of Rocephin. When the patient was initially admitted urine culture from acute rehab had not yet resulted. We now know the patient does not likely have a UTI. The patient had not had any urine output since admission and bladder scan again showed greater than 1.6 L but when Webb catheter was placed the patient only had about 250 mL of urine output that was cloudy yellow in appearance. The urine culture that had been obtained on the again returned negative For growth. The patient had evidently been started on Seroquel on the 1 dose 25 mg. The patient did not receive a dose on the as he was in the ER. The patient has evidently been combative in hitting at staff. This was an acute change from prior. 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
--- NOTE | 2022-06-17 01:17 | PC.NURSE ---
Patient arrived to floor @ [id number]
[2022-06-17] MEDS: ALBUMIN HUMAN 25% 25 GM/100 ML 200 ML IVPB (01:29)
[2022-06-17 01:40] LABS: Free T4 Free Thyroxine 1.11 ng/mL (0.78-2.19)
[2022-06-17 01:52] VITALS: BP 112/89; PULSE 89; O2SAT 93
[2022-06-17] MEDS: SODIUM CHLORIDE 0.9% IV 1,000 ML 50 ML IV CONT (04:36)
[2022-06-17 05:28] LABS: Chloride 98 mmol/L (98-107)
[2022-06-17 05:37] LABS: Alanine Aminotransferase 24 U/L (6-50); Albumin Level 2.2 g/dL (3.5-5.1); Alkaline Phosphatase 81 U/L (38-126); Anion Gap 9 mmol/L (8-16); Aspartate Amino Transferase 28 U/L (17-59); Bilirubin,Total 0.6 mg/dL (0.2-1.3); Blood Urea Nitrogen 49 mg/dL (9-20); Calcium 8.1 mg/dL (8.4-10.2); Carbon Dioxide 26 mmol/L (22-30); Estimated Glomerular Filt Rate 50; Glucose 78 mg/dL (65-110); Potassium 4.7 mmol/L (3.4-5.0); Sodium 133 mmol/L (137-145)
[2022-06-17 06:00] VITALS: BP 99/56; PULSE 89; RESP 20; TEMP 36.2
[2022-06-17 06:00] LABS: Total Triiodothyronine (T3) 0.51 NG/ML (0.97-1.69)
[2022-06-17 06:13] LABS: Basophils Percent Auto 0.2 % (0.2-1.2); Eosinophils Percent Auto 0.2 % (0-4.4); Hematocrit 32.2 % (42.0-52.0); Hemoglobin 10.6 g/dL (14.0-18.0); Immature Granulocyte Absolute 0.05 K/mm3 (0.00-0.031); Immature Granulocyte Percent A 0.5 % (0-0.5); Lymphocytes Percent Auto 8.3 % (18.3-44.2); Mean Corpuscular HGB Conc 32.9 g/dl (32-36); Mean Corpuscular Hemoglobin 33.9 pg (26-34); Mean Corpuscular Volume 102.9 fl (80-100); Mean Platelet Volume 10.6 fl (7.4-10.4); Monocytes Percent Auto 9.6 % (2.6-8.5); Neutrophils Absolute Auto 8.8 K/mm3 (1.3-6.7); Neutrophils Percent Auto 81.2 % (45.5-73.1); Platelet Count Result 188 k/mm3 (150-375); Red Blood Count 3.13 M/mm3 (4.6-6.20); Red Cell Distribution Width 14.2 % (11.5-14.5); White Blood Count 10.9 K/mm3 (4.5-10.0)
[2022-06-17] MEDS: LEVOTHYROXINE SODIUM INJ 100 MCG/5 ML VIAL 50 MCG IV PUSH (06:16)
[2022-06-17 06:21] LABS: Partial Thromboplastin Time 35.7 SECONDS (22.3-36.8)
[2022-06-17] MEDS: SILVERGEL (ELTA) 45 ML 1 APPLIC TOPICAL (09:52)
--- NOTE | 2022-06-17 10:32 | PCSTNOTE ---
Nurse reports that patient is NPO for procedure this morning and therefore unable to complete BSS. Will try later today.
[2022-06-17] MEDS: ALBUMIN HUMAN 25% 25 GM/100 ML 100 ML IVPB ×2 (11:02→17:00)
[2022-06-17 12:56] VITALS: BMI 24.1
--- NOTE | 2022-06-17 13:36 | PM.IMPN ---
Progress Note: A&P Assessment and Plan (1) Altered mental status: Qualifiers: Altered mental status type: delirium Qualified Code(s): R41.0 - Disorientation, unspecified Code(s): R41.82 - Altered mental status, unspecified Status: Acute Assessment and Plan: Patient presented with nonspecific delirium has not yet been identified. Patient's urine culture negative Blood cultures pending Patient has history of cirrhosis, ammonia levels normal, patient started on albumin SBP possible diagnosis Patient really is started on 2 g of Rocephin for suspected UTI, will continue this for possible SBP. GI consulted (2) Cirrhosis of liver with ascites: Qualifiers: Hepatic cirrhosis type: unspecified hepatic cirrhosis Qualified Code(s): K74.60 - Unspecified cirrhosis of liver; R18.8 - Other ascites Code(s): K74.60 - Unspecified cirrhosis of liver; R18.8 - Other ascites Status: Acute Assessment and Plan: Patient diagnosed with cirrhosis of unknown cause CT abdomen pelvis revealed diffuse lung disease likely moderate pulmonary edema, moderate size pleural effusions, large volume ascites insert Rocephin of liver with portal venous hypertension Patient MO new level normal Patient started on IV albumin GI consulted Patient underwent ultrasound-guided paracentesis on 06/17/2022 that yielded 5000 mL of clear tamera colored fluid. Fluid sent for analysis (3) Abnormal finding on urinalysis: Code(s): R82.90 - Unspecified abnormal findings in urine Status: Acute Assessment and Plan: Abnormal urine with negative culture. Patient put on 2 g Rocephin and this is continued for SBP treatment (4) Subclinical hypothyroidism: Code(s): E03.8 - Other specified hypothyroidism Status: Acute Assessment and Plan: Patient had elevated TSH, low T3 and normal T4. Patient started on IV levothyroxine. Recheck labs in a day or 2 (5) Elevated lactic acid level: Code(s): R79.89 - Other specified abnormal findings of blood chemistry Status: Acute Assessment and Plan: Patient has lactic acidosis although lactic acid level has been stable. Elevated lactic acid likely due to synthetic dysfunction of the liver. (6) Acute kidney injury: Code(s): N17.9 - Acute kidney failure, unspecified Status: Acute Assessment and Plan: Patient found to have JESSI likely due to intravascular volume depletion. Patient has had episodes of hypotension at the acute rehab. Patient given albumin Gentle IV fluid hydration Can possibly diurese to improved pleural effusion and ascites once patient's hydration status becomes stable Creatinine trending down from admission Plan Speech evaluation due to altered mental status Patient swallowing may be impaired due to mental status. Subjective Date/time seen: 06/17/22 13:36 Objective Data Vital Signs Vital Signs: Vital Signs - 24 hr 06/16/22 18:25 06/16/22 18:40 06/16/22 20:20 Temperature Pulse Rate 76 70 76 Respiratory Rate 19 20 Blood Pressure 103/60 106/87 Pulse Oximetry 100 98 Oxygen Delivery 06/16/22 21:49 06/17/22 00:29 06/17/22 01:52 Temperature 97 F L Pulse Rate 80 78 89 Respiratory Rate 20 20 Blood Pressure 117/87 105/67 112/89 Pulse Oximetry 98 98 93 Oxygen Delivery 06/17/22 00:55 06/17/22 06:00 Temperature 97.2 F L Pulse Rate 89 Respiratory Rate 20 Blood Pressure 99/56 L Pulse Oximetry Oxygen Delivery Room Air Intake/Output Intake/Output: Intake & Output 06/14/22 06/15/22 06/16/22 06/17/22 23:59 23:59 23:59 23:59 Intake Total 100 Output Total 700 5000 Balance -700 -4900 Meds/Results Medications: Active Medications Generic Name Dose Route Start Last Admin Trade Name Freq PRN Reason Stop Dose Admin Enoxaparin Sodium 40 mg 06/17/22 09:00 06/17/22 07:54
[2022-06-17 14:00] VITALS: BP 96/44; PULSE 84; RESP 18; TEMP 36.3; O2SAT 100
--- NOTE | 2022-06-17 14:07 | WPDGICN ---
Assessment and Plan Assessment and plan (1) Cirrhosis: Code(s): K74.60 - Unspecified cirrhosis of liver Status: Acute Assessment and Plan: just in the last few weeks he was found have cirrhosis. He had paracentesis a few weeks ago and again yesterday had 5 L removed. Will need to start fluid restriction. He had been started on a low-dose spironolactone which obviously was insufficient. (2) Abdominal ascites: Qualifiers: Ascites type: due to alcoholic cirrhosis Qualified Code(s): K70.31 - Alcoholic cirrhosis of liver with ascites Code(s): R18.8 - Other ascites Status: Acute Assessment and Plan: 5 L was removed yesterday. (3) Acute kidney injury: Code(s): N17.9 - Acute kidney failure, unspecified Status: Acute Assessment and Plan: BUN 47, creatinine 1.6. This is unchanged from last admission. (4) Altered mental status: Qualifiers: Altered mental status type: delirium Qualified Code(s): R41.0 - Disorientation, unspecified Code(s): R41.82 - Altered mental status, unspecified Status: Acute Assessment and Plan: He is confused in the apparently not able to eat. Because of risk of aspiration he will be getting a modified barium swallow which has been ordered ammonia is normal hence this is probably not related to his liver disease. (5) Iron deficiency anemia: Code(s): D50.9 - Iron deficiency anemia, unspecified Status: Acute Assessment and Plan: hemoglobin has dropped, it was 12.9 last week now is down to 10.6. There was however no evidence bleeding this probably represents rehydration. GI Consult Note Consult date/time: 06/17/22 14:07 HPI: Dc Pizano is a 72 year old male who I recently saw when he was hospitalized a little over week ago. He was found at that time to have marked ascites and fluid retention. Was also discovered that he had cirrhosis which she stated was new to him. Now he is transferred here from [facility] rehab because of altered mental status. He does have cellulitis of right lower extremity and perhaps has bacteremia from that. He had been started on Rocephin. Apparently his mental status has declined over the past several days. Was noted to have marked ascites again and went down yesterday for paracentesis with removal of 5 L of fluid. He Is confused at this point in time. consequently he cannot add much to the he has history. [facility] Past Medical History Medical History Cirrhosis High cholesterol History of high blood pressure Iron deficiency anemia Osteosarcoma Surgical History Surgical History Amputated left leg History of disarticulation of left hip Family History Family History Other Unknown family medical history Social History Social History Social History: code status: Full code Years smoked: 50 Smoking status: Current every day smoker Tobacco type: pipe Additional smoking assessment comments: pt smoking a pipe for 30 years Alcohol intake: current Alcohol use details: 1-2 drinks/year Substance use: never Lack of Transportation: No Lack of Food: Never True Current Housing: I Have Housing Concerned About Future Housing: No Difficulty Paying Gas/Electric Bills: No Difficulty Paying for Meds: No Currently Unemployed: No Education: Master's Degree or Higher Difficulty w/ Childcare or Family Care: No Spiritual care concerns: No Meds Home Medications and Allergies Home Medications Medication Instructions Recorded Confirmed Type tamsulosin 0.4 mg capsule 0.4 mg PO DAILY 03/28/21 06/17/22 History verapamil 120 mg tablet 120 mg PO DAILY 03/28/21 06/17/22 History sertralin
[2022-06-17 14:18] LABS: Appearance Peritoneal Fluid Hazy (Clear); Color Peritoneal Fluid Yellow (Colorless); Source Peritoneal Fluid Peritoneal Fluid
[2022-06-17 14:19] LABS: Lymphocytes Peritoneal Fluid 7 %; Macrophages Peritoneal Fluid 4 %; Mesothelial Cells Peritoneal Fluid 3 %; Monocytes Peritoneal Fluid 85 %; Neutrophils Peritoneal Fluid 1 % (0-25); Nucleated Cells Peritoneal Flu 108 /uL (0-500); RBC Peritoneal Fluid 0 /uL (0-100000)
[2022-06-17] MEDS: DOXYCYCLINE 100 MG/NS 100 ML 100 MG/100 ML BAG IVPB (15:47)
--- NOTE | 2022-06-17 16:21 | PCSTNOTE ---
Please refer to the Bedside Swallow Evaluation in the EMR. Please note, silent aspiration cannot be ruled out at bedside.
[2022-06-17] MEDS: FERROUS SULFATE 324 MG TABLET PO (16:30)
[2022-06-17] MEDS: PANTOPRAZOLE 40 MG TABLET PO (20:32)
[2022-06-17 21:32] VITALS: BP 99/63; PULSE 83; RESP 14; TEMP 36.8; O2SAT 96
[2022-06-18] MEDS: ALBUMIN HUMAN 25% 25 GM/100 ML 100 ML IVPB ×3 (00:03→13:15)
[2022-06-18] MEDS: DOXYCYCLINE 100 MG/NS 100 ML 100 MG/100 ML BAG IVPB ×2 (03:59→15:24)
[2022-06-18 06:00] VITALS: BP 102/64; PULSE 80; RESP 12; TEMP 36.4; O2SAT 100
[2022-06-18 06:02] LABS: Basophils Percent Auto 0.1 % (0.2-1.2); Eosinophils Absolute Auto 0.1 K/mm3 (0-0.3); Eosinophils Percent Auto 0.6 % (0-4.4); Hematocrit 29.9 % (42.0-52.0); Hemoglobin 9.9 g/dL (14.0-18.0); Immature Granulocyte Absolute 0.04 K/mm3 (0.00-0.031); Immature Granulocyte Percent A 0.5 % (0-0.5); Lymphocytes Absolute Auto 0.68 K/mm3 (0.9-3.2); Lymphocytes Percent Auto 8.6 % (18.3-44.2); Mean Corpuscular HGB Conc 33.1 g/dl (32-36); Mean Corpuscular Hemoglobin 32.8 pg (26-34); Mean Platelet Volume 10.4 fl (7.4-10.4); Monocytes Absolute Auto 0.9 K/mm3 (0.1-0.6); Monocytes Percent Auto 10.9 % (2.6-8.5); Neutrophils Absolute Auto 6.3 K/mm3 (1.3-6.7); Neutrophils Percent Auto 79.3 % (45.5-73.1); Platelet Count Result 173 k/mm3 (150-375); Red Blood Count 3.02 M/mm3 (4.6-6.20); Red Cell Distribution Width 14.3 % (11.5-14.5); White Blood Count 7.9 K/mm3 (4.5-10.0)
[2022-06-18 06:10] LABS: INR 1.4; Partial Thromboplastin Time 36.7 SECONDS (22.3-36.8); Prothrombin Time 16.3 Seconds (11.1-14.7)
[2022-06-18 06:15] LABS: Alanine Aminotransferase 13 U/L (6-50); Albumin Level 3.2 g/dL (3.5-5.1); Alkaline Phosphatase 64 U/L (38-126); Anion Gap 6 mmol/L (8-16); Aspartate Amino Transferase 27 U/L (17-59); Bilirubin,Total 0.8 mg/dL (0.2-1.3); Blood Urea Nitrogen 40 mg/dL (9-20); Calcium 8.2 mg/dL (8.4-10.2); Carbon Dioxide 26 mmol/L (22-30); Chloride 100 mmol/L (98-107); Estimated CRCL calculation 56 ml/min; Estimated Glomerular Filt Rate > 60; Glucose 64 mg/dL (65-110); Magnesium 1.9 mg/dL (1.6-2.3); Phosphorus 3.4 mg/dL (2.5-4.5); Potassium 3.7 mmol/L (3.4-5.0); Sodium 132 mmol/L (137-145)
[2022-06-18 06:16] LABS: Lactic Acid Reflex 1.1 mmol/L (0.7-2.0)
[2022-06-18] MEDS: LACTULOSE 20 GM/30 ML UDC PO (08:37)
[2022-06-18] MEDS: VERAPAMIL HCL 120 MG TABLET IMMED RELEASE PO (08:38)
[2022-06-18] MEDS: PANTOPRAZOLE 40 MG TABLET PO (08:38)
[2022-06-18] MEDS: SPIRONOLACTONE 50 MG TABLET PO (08:38)
[2022-06-18] MEDS: SERTRALINE HCL 25 MG TABLET PO (08:38)
[2022-06-18] MEDS: TAMSULOSIN HCL 0.4 MG CAPSULE PO (08:38)
[2022-06-18] MEDS: FERROUS SULFATE 324 MG TABLET PO (08:38)
[2022-06-18] MEDS: ENOXAPARIN 40 MG/0.4 ML SYRINGE SUB-Q (08:38)
[2022-06-18] MEDS: SILVERGEL (ELTA) 45 ML 1 APPLIC TOPICAL (08:39)
--- NOTE | 2022-06-18 10:54 | WPDGIPROGNO ---
Progress Note: A&P Assessment and Plan (1) Cirrhosis: Code(s): K74.60 - Unspecified cirrhosis of liver Status: Acute Assessment and Plan: just in the last few weeks he was found have cirrhosis. He had paracentesis a few weeks ago and again yesterday had 5 L removed. Will need to start fluid restriction. He had been started on a low-dose spironolactone which obviously was insufficient. (2) Abdominal ascites: Qualifiers: Ascites type: due to alcoholic cirrhosis Qualified Code(s): K70.31 - Alcoholic cirrhosis of liver with ascites Code(s): R18.8 - Other ascites Status: Acute Assessment and Plan: 5 L was removed yesterday. 05/18/2022 will increase the spironolactone to 100 mg per day and add furosemide. ( A 100-40 mg ratio is optimal for ascites) (3) Acute kidney injury: Code(s): N17.9 - Acute kidney failure, unspecified Status: Acute Assessment and Plan: BUN 47, creatinine 1.6. This is unchanged from last admission. BUN is down to 40 and creatinine has improved. (4) Altered mental status: Qualifiers: Altered mental status type: delirium Qualified Code(s): R41.0 - Disorientation, unspecified Code(s): R41.82 - Altered mental status, unspecified Status: Acute Assessment and Plan: He is confused in the apparently not able to eat. Because of risk of aspiration he will be getting a modified barium swallow which has been ordered ammonia is normal hence this is probably not related to his liver disease. (5) Iron deficiency anemia: Code(s): D50.9 - Iron deficiency anemia, unspecified Status: Acute Assessment and Plan: hemoglobin has dropped, it was 12.9 last week now is down to 10.6. There was however no evidence bleeding this probably represents rehydration. 05/18/2022 hemoglobin is 9.9. Still however no evidence Subjective Date/time seen: 06/18/22 10:54 He remains confused. He is lying in bed, comfortable, but totally uncovered by sheets. He did pass his swallowing study yesterday with no sign of aspiration. Exam Const: General: no acute distress, confusion, tired appearing and thin Nutritional Appearance: thin Orientation/consciousness: confusion HENMT: Mouth: Yes dry mucous membranes Resp: Auscultation: clear to auscultation bilaterally Cardio: Rhythm: regular rhythm GI: Inspection: other ( Flat, some palpable ascites) GI Palp: No abdominal tenderness, Yes Soft to palpation and Yes No hepatosplenomegaly present Auscultation: normal bowel sounds Neuro: General: confusion Extrem: Other: high amputation Objective Data Vital Signs Vital Signs: Vital Signs - 24 hr 06/17/22 14:00 06/17/22 21:32 06/18/22 06:00 Temperature 36.3 C L 36.8 C 36.4 C Pulse Rate 84 83 80 Respiratory Rate 18 14 12 Blood Pressure 96/44 L 99/63 L 102/64 Pulse Oximetry 100 96 100 Intake/Output Intake/Output: Intake & Output 06/15/22 06/16/22 06/17/22 06/18/22 23:59 23:59 23:59 23:59 Intake Total 640 150 Output Total 700 5850 400 Balance 700 -5210 -250 Meds/Results Medications: Active Medications Generic Name Dose Route Start Last Admin Trade Name Jigarq PRN Reason Stop Dose Admin Enoxaparin Sodium 40 mg 06/17/22 09:00 06/18/22 08:38 Enoxaparin 40 Mg/0.4 Ml Syringe SUB-Q 40 mg DAILY KAREN Administration Ferrous Sulfate 324 mg 06/17/22 08:00 06/18/22 08:38 Ferrous Sulfate 324 Mg Tablet PO 324 mg BIDWM KAREN Administration Ceftriaxone Sodium 2 gm/ 100 mls @ 200 mls/hr 06/17/22 22:00 06/17/22 21:59 Sodium Chloride IVPB 200 mls/hr Q24H KAREN Administration Sodium Chloride 1,000 mls @ 50 mls/hr 06/17/22 03:20 06/18/22 08:36 Normal Saline Iv IV CONT Not Given .Q20H KAREN Albumin Human 100 mls @ 60 mls/hr 06/17/22 12:00 06/18/22 05:24 Albutein IVPB 60 mls/hr Q6HR KAREN Administration Doxycycline Hyclate 100 mg in 100
[2022-06-18 13:28] LABS: Glucose Point of Care 117 mg/dl (65-105)
[2022-06-18 14:00] VITALS: BP 92/67; PULSE 65; RESP 16; TEMP 36.1; O2SAT 100
--- NOTE | 2022-06-18 14:52 | P.PNIM_ITS ---
Progress Note: A&P Assessment and Plan (1) Altered mental status: Qualifiers: Altered mental status type: delirium Qualified Code(s): R41.0 - Disorientation, unspecified Code(s): R41.82 - Altered mental status, unspecified Status: Acute Assessment and Plan: Patient presented with nonspecific delirium has not yet been identified. * Patient's urine culture negative * Blood cultures no growth to date * Patient has history of cirrhosis, ammonia levels normal, patient started on albumin * SBP possible diagnosis * Patient really is started on 2 g of Rocephin for suspected UTI, will continue this for possible SBP. * GI consulted and appreciate recommendations. (2) Cirrhosis of liver with ascites: Qualifiers: Hepatic cirrhosis type: unspecified hepatic cirrhosis Qualified Code(s): K74.60 - Unspecified cirrhosis of liver; R18.8 - Other ascites Code(s): K74.60 - Unspecified cirrhosis of liver; R18.8 - Other ascites Status: Acute Assessment and Plan: Patient diagnosed with cirrhosis of unknown cause * CT abdomen pelvis revealed diffuse lung disease likely moderate pulmonary edema, moderate size pleural effusions, large volume ascites insert Rocephin of liver with portal venous hypertension * Patient MO new level normal * Patient started on IV albumin * GI consulted * Patient underwent ultrasound-guided paracentesis on 06/17/2022 that yielded 5000 mL of clear tamera colored fluid. * Fluid sent for analysis * Fluid restriction and salt restriction * Started on Spironolactone and furosemide. * Lactulose q.d.. * Discussed with patient's power of atomic physics professor, his daughter, about possible hospice care. Hospice consult ordered. (3) Abnormal finding on urinalysis: Code(s): R82.90 - Unspecified abnormal findings in urine Status: Acute Assessment and Plan: Patient diagnosed with cirrhosis of unknown cause * CT abdomen pelvis revealed diffuse lung disease likely moderate pulmonary edema, moderate size pleural effusions, large volume ascites insert Rocephin of liver with portal venous hypertension * Ammonia level normal * Patient started on IV albumin * GI consulted * Patient underwent ultrasound-guided paracentesis on 06/17/2022 that yielded 5000 mL of clear tamera colored fluid. * Fluid sent for analysis (4) Subclinical hypothyroidism: Code(s): E03.8 - Other specified hypothyroidism Status: Acute Assessment and Plan: Patient given IV levothyroxine x1 Advise follow-up with thyroid as an outpatient. (5) Elevated lactic acid level: Code(s): R79.89 - Other specified abnormal findings of blood chemistry Status: Acute Assessment and Plan: Lactic acid within normal limits (6) Acute kidney injury: Code(s): N17.9 - Acute kidney failure, unspecified Status: Acute Assessment and Plan: Patient found to have JESSI likely due to intravascular volume depletion. * Patient has had episodes of hypotension at the acute rehab. * Patient given albumin * Gentle IV fluid hydration * Can possibly diurese to improved pleural effusion and ascites once patient's hydration status becomes stable * Creatinine trending down from admission Time Spent With Patient Time with patient: 25 - 35 minutes Subjective Date/time seen: 06/18/22 14:52 Interval history: Patient laying in bed comfortably. Demetrio
--- NOTE | 2022-06-18 14:52 | PM.IMPN ---
Progress Note: A&P Assessment and Plan (1) Altered mental status: Qualifiers: Altered mental status type: delirium Qualified Code(s): R41.0 - Disorientation, unspecified Code(s): R41.82 - Altered mental status, unspecified Status: Acute Assessment and Plan: Patient presented with nonspecific delirium has not yet been identified. Patient's urine culture negative Blood cultures no growth to date Patient has history of cirrhosis, ammonia levels normal, patient started on albumin SBP possible diagnosis Patient really is started on 2 g of Rocephin for suspected UTI, will continue this for possible SBP. GI consulted and appreciate recommendations. (2) Cirrhosis of liver with ascites: Qualifiers: Hepatic cirrhosis type: unspecified hepatic cirrhosis Qualified Code(s): K74.60 - Unspecified cirrhosis of liver; R18.8 - Other ascites Code(s): K74.60 - Unspecified cirrhosis of liver; R18.8 - Other ascites Status: Acute Assessment and Plan: Patient diagnosed with cirrhosis of unknown cause CT abdomen pelvis revealed diffuse lung disease likely moderate pulmonary edema, moderate size pleural effusions, large volume ascites insert Rocephin of liver with portal venous hypertension Patient MO new level normal Patient started on IV albumin GI consulted Patient underwent ultrasound-guided paracentesis on 06/17/2022 that yielded 5000 mL of clear tamera colored fluid. Fluid sent for analysis Fluid restriction and salt restriction Started on Spironolactone and furosemide. Lactulose q.d.. Discussed with patient's power of state attorney, his daughter, about possible hospice care. Hospice consult ordered. (3) Abnormal finding on urinalysis: Code(s): R82.90 - Unspecified abnormal findings in urine Status: Acute Assessment and Plan: Patient diagnosed with cirrhosis of unknown cause CT abdomen pelvis revealed diffuse lung disease likely moderate pulmonary edema, moderate size pleural effusions, large volume ascites insert Rocephin of liver with portal venous hypertension Ammonia level normal Patient started on IV albumin GI consulted Patient underwent ultrasound-guided paracentesis on 06/17/2022 that yielded 5000 mL of clear tamera colored fluid. Fluid sent for analysis (4) Subclinical hypothyroidism: Code(s): E03.8 - Other specified hypothyroidism Status: Acute Assessment and Plan: Patient given IV levothyroxine x1 Advise follow-up with thyroid as an outpatient. (5) Elevated lactic acid level: Code(s): R79.89 - Other specified abnormal findings of blood chemistry Status: Acute Assessment and Plan: Lactic acid within normal limits (6) Acute kidney injury: Code(s): N17.9 - Acute kidney failure, unspecified Status: Acute Assessment and Plan: Patient found to have JESSI likely due to intravascular volume depletion. Patient has had episodes of hypotension at the acute rehab. Patient given albumin Gentle IV fluid hydration Can possibly diurese to improved pleural effusion and ascites once patient's hydration status becomes stable Creatinine trending down from admission Time Spent With Patient Time with patient: 25 - 35 minutes Subjective Date/time seen: 06/18/22 14:52 Interval history: Patient laying in bed comfortably. Patient more alert and oriented today. Patient less combative. Patient forming sentences and talking to me. Patient has no complaints and states that he is in no pain. Review of Systems Review of Systems: All systems reviewed & are unremarkable except as noted in HPI and below Exam Narrative: GENERAL: Comfortable, no acute distress HENMT: moist mucous membranes, no teeth, sublingual jaundice. EYES: EOM intact b/l NECK: no lymphadenopathy RESPIRATORY: clear to auscultation CARDIO: RRR GI: bowel sounds present,
--- NOTE | 2022-06-19 08:10 | P.DS_ITS ---
DS: Admitting Diagnosis Discharge Date 06/18/22 Admitting Diagnosis Acute metabolic encephalopathy, cirrhosis DS: Discharge Diagnosis Discharge Diagnosis (1) Altered mental status: Qualifiers: Altered mental status type: delirium Qualified Code(s): R41.0 - Disorientation, unspecified Code(s): R41.82 - Altered mental status, unspecified Status: Acute Assessment and Plan: Patient presented with nonspecific delirium has not yet been identified. * Patient's urine culture negative * Blood cultures no growth to date * Patient has history of cirrhosis, ammonia levels normal, patient started on albumin * SBP possible diagnosis * Patient really is started on 2 g of Rocephin for suspected UTI, will continue this for possible SBP. * GI consulted and appreciate recommendations. (2) Cirrhosis of liver with ascites: Qualifiers: Hepatic cirrhosis type: unspecified hepatic cirrhosis Qualified Code(s): K74.60 - Unspecified cirrhosis of liver; R18.8 - Other ascites Code(s): K74.60 - Unspecified cirrhosis of liver; R18.8 - Other ascites Status: Acute Assessment and Plan: Patient diagnosed with cirrhosis of unknown cause * CT abdomen pelvis revealed diffuse lung disease likely moderate pulmonary edema, moderate size pleural effusions, large volume ascites insert Rocephin of liver with portal venous hypertension * Patient MO new level normal * Patient started on IV albumin * GI consulted * Patient underwent ultrasound-guided paracentesis on 06/17/2022 that yielded 5000 mL of clear tamera colored fluid. * Fluid sent for analysis * Fluid restriction and salt restriction * Started on Spironolactone and furosemide. * Lactulose q.d.. * Discussed with patient's power of banking attorney, his daughter, about possible hospice care. Hospice consult ordered. (3) Abnormal finding on urinalysis: Code(s): R82.90 - Unspecified abnormal findings in urine Status: Acute Assessment and Plan: Patient diagnosed with cirrhosis of unknown cause * CT abdomen pelvis revealed diffuse lung disease likely moderate pulmonary edema, moderate size pleural effusions, large volume ascites insert Rocephin of liver with portal venous hypertension * Ammonia level normal * Patient started on IV albumin * GI consulted * Patient underwent ultrasound-guided paracentesis on 06/17/2022 that yielded 5000 mL of clear tamera colored fluid. * Fluid sent for analysis (4) Subclinical hypothyroidism: Code(s): E03.8 - Other specified hypothyroidism Status: Acute Assessment and Plan: Patient given IV levothyroxine x1 Advise follow-up with thyroid as an outpatient. (5) Elevated lactic acid level: Code(s): R79.89 - Other specified abnormal findings of blood chemistry Status: Acute Assessment and Plan: Lactic acid within normal limits (6) Acute kidney injury: Code(s): N17.9 - Acute kidney failure, unspecified Status: Acute Assessment and Plan: Patient found to have JESSI likely due to intravascular volume depletion. * Patient has had episodes of hypotension at the acute rehab. * Patient given albumin * Gentle IV fluid hydration * Can possibly diurese to improved pleural effusion and ascites once patient's hydration status becomes stable * Creatinine trending down from admission DS: Summary Hospital Course Reason fo
--- NOTE | 2022-06-19 08:10 | PM.DS ---
DS: Admitting Diagnosis Discharge Date 06/18/22 Admitting Diagnosis Acute metabolic encephalopathy, cirrhosis DS: Discharge Diagnosis Discharge Diagnosis (1) Altered mental status: Qualifiers: Altered mental status type: delirium Qualified Code(s): R41.0 - Disorientation, unspecified Code(s): R41.82 - Altered mental status, unspecified Status: Acute Assessment and Plan: Patient presented with nonspecific delirium has not yet been identified. Patient's urine culture negative Blood cultures no growth to date Patient has history of cirrhosis, ammonia levels normal, patient started on albumin SBP possible diagnosis Patient really is started on 2 g of Rocephin for suspected UTI, will continue this for possible SBP. GI consulted and appreciate recommendations. (2) Cirrhosis of liver with ascites: Qualifiers: Hepatic cirrhosis type: unspecified hepatic cirrhosis Qualified Code(s): K74.60 - Unspecified cirrhosis of liver; R18.8 - Other ascites Code(s): K74.60 - Unspecified cirrhosis of liver; R18.8 - Other ascites Status: Acute Assessment and Plan: Patient diagnosed with cirrhosis of unknown cause CT abdomen pelvis revealed diffuse lung disease likely moderate pulmonary edema, moderate size pleural effusions, large volume ascites insert Rocephin of liver with portal venous hypertension Patient MO new level normal Patient started on IV albumin GI consulted Patient underwent ultrasound-guided paracentesis on 06/17/2022 that yielded 5000 mL of clear tamera colored fluid. Fluid sent for analysis Fluid restriction and salt restriction Started on Spironolactone and furosemide. Lactulose q.d.. Discussed with patient's power of [place] attorney, his daughter, about possible hospice care. Hospice consult ordered. (3) Abnormal finding on urinalysis: Code(s): R82.90 - Unspecified abnormal findings in urine Status: Acute Assessment and Plan: Patient diagnosed with cirrhosis of unknown cause CT abdomen pelvis revealed diffuse lung disease likely moderate pulmonary edema, moderate size pleural effusions, large volume ascites insert Rocephin of liver with portal venous hypertension Ammonia level normal Patient started on IV albumin GI consulted Patient underwent ultrasound-guided paracentesis on 06/17/2022 that yielded 5000 mL of clear tamera colored fluid. Fluid sent for analysis (4) Subclinical hypothyroidism: Code(s): E03.8 - Other specified hypothyroidism Status: Acute Assessment and Plan: Patient given IV levothyroxine x1 Advise follow-up with thyroid as an outpatient. (5) Elevated lactic acid level: Code(s): R79.89 - Other specified abnormal findings of blood chemistry Status: Acute Assessment and Plan: Lactic acid within normal limits (6) Acute kidney injury: Code(s): N17.9 - Acute kidney failure, unspecified Status: Acute Assessment and Plan: Patient found to have JESSI likely due to intravascular volume depletion. Patient has had episodes of hypotension at the acute rehab. 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 Patient recently diagnosed with cirrhosis within the past month and presented to the ED on 06/17/2022 with altered mental status. Patient had been recently admitted to the hospital from 06/06/2022 through 06/10/2022 due to pseudomonal UTI and cellulitis of the right lower extremity and was instantly found to
[2022-06-21 11:29] LABS: Glucose Peritoneal Fluid 78 mg/dL; LDH Peritoneal Fluid 35 U/L (<63); Total Protein Peritoneal Fluid <3.0 g/dL
[2022-06-21 11:52] LABS: Albumin Peritoneal Fluid 0.6 g/dL
== END 2022-06-18 18:36 | disposition hospice, inpatient (51) | DRG 432 ==
LOC: ANHED 23:16 → ANH3MEDSUR 06-17 00:22
PROVIDERS: Physician Assistant; Admitting Provider Internal Medicine; Emergency Provider General Practice; Visit Provider Internal Medicine Critical Care Medicine
DX: K74.60 Unspecified cirrhosis of liver (principal); G93.41 Metabolic encephalopathy; K65.2 Spontaneous bacterial peritonitis; R18.8 Other ascites; N17.9 Acute kidney failure, unspecified; K76.6 Portal hypertension; N39.0 Urinary tract infection, site not specified; J90 Pleural effusion, not elsewhere classified; R41.0 Disorientation, unspecified; Z20.822 Contact with and (suspected) exposure to COVID-19; R82.90 Unspecified abnormal findings in urine; E03.8 Other specified hypothyroidism; I95.9 Hypotension, unspecified; I10 Essential (primary) hypertension; E78.5 Hyperlipidemia, unspecified; D50.9 Iron deficiency anemia, unspecified; F17.210 Nicotine dependence, cigarettes, uncomplicated; D72.829 Elevated white blood cell count, unspecified; Z89.612 Acquired absence of left leg above knee; Z85.89 Personal history of malignant neoplasm of other organs and systems; Z66 Do not resuscitate
CPT/HCPCS: 36415; 36600; 49083; 51701; 70450; 71045; 74177; 80053; 80307; 81001; 82042; 82140; 82375; 82805; 82945; 82948; 83050; 83605; 83615; 83735; 83880; 84100; 84157; 84439; 84443; 84480; 84484; 85025; 85610; 85730; 87040; 87070; 87075; 87086; 87205; 87636; 88108; 88305; 89051; 92610; 93005; 96374; 99285; A9270; J0696; J1650; J2060; J7030; P9047; Q9967

== ENCOUNTER 2022-06-18 19:19 | HOS | payer OTHER, MEDICARE, BC, SELFPAY ==
[2022-06-18] MEDS: HYDROmorphone HCL/PF (*CRX) 50 MG in SODIUM CHLORIDE 0.9% IV 95 ML IV CONT (20:26)
[2022-06-18 23:07] VITALS: BP 96/66; PULSE 72; RESP 14; TEMP 36.2; O2SAT 100
[2022-06-19] MEDS: diazePAM INJ (*CRX) 10 MG/2 ML SYRINGE 5 MG IV PUSH (03:29)
[2022-06-19 09:59] VITALS: O2SAT 97
[2022-06-19] MEDS: SILVERGEL (ELTA) 45 ML 1 APPLIC TOPICAL (15:12)
[2022-06-19 15:26] VITALS: BP 92/62; PULSE 64; RESP 14; TEMP 35.5; O2SAT 98
[2022-06-19] MEDS: HYDROmorphone HCL/PF (*CRX) 50 MG in SODIUM CHLORIDE 0.9% IV 95 ML IV CONT (20:46)
--- NOTE | 2022-06-19 21:48 | PM.IMHP ---
H&P: HPI History of Present Illness Date/Time: 06/19/22 21:48 Chief Complaint: Uncontrolled restlessness Narrative: admitted [facility] via emergency department from acute rehab on June 17. At altered mental status. Found to have cirrhosis. Recently treated for cellulitis right lower extremity and pseudomonal UTI. Urine culture was negative this time. Ammonia level was low. Blood cultures negative so far. Was started on Rocephin and rehab prior to paracentesis so it would not be surprising that those cultures were negative. Patient did not improve with IV albumin and Rocephin. Because of his multiple comorbidities declining functional status his who is power of security shift manager opted for inpatient hospice to control his restlessness. [facility] Past Medical History Medical History Cirrhosis High cholesterol History of high blood pressure Iron deficiency anemia Osteosarcoma Surgical History Surgical History Amputated left leg History of disarticulation of left hip Family History Family History Other Unknown family medical history Social History Social History Social History: code status: DNR Years smoked: 50 Smoking status: Current every day smoker Tobacco type: pipe Additional smoking assessment comments: pt smoking a pipe for 30 years Alcohol intake: current Alcohol use details: 1-2 drinks/year Substance use: never Lack of Transportation: No Lack of Food: Never True Current Housing: I Have Housing Concerned About Future Housing: No Difficulty Paying Gas/Electric Bills: No Difficulty Paying for Meds: No Currently Unemployed: No Education: Master's Degree or Higher Difficulty w/ Childcare or Family Care: No Spiritual care concerns: No Meds Home Medications and Allergies Home Medications Medication Instructions Recorded Confirmed Type No Home Medications 06/19/22 06/19/22 History Allergies Allergy/AdvReac Type Severity Reaction Status Date / Time No Known Allergies Allergy Verified 06/09/22 07:04 Vital Signs Vital Signs - 24 hr 06/18/22 23:07 06/19/22 08:00 06/19/22 09:59 Temperature 97.1 F L Pulse Rate 72 Respiratory Rate 14 Blood Pressure 96/66 L Pulse Oximetry 100 97 Oxygen Delivery Room Air Room Air 06/19/22 15:26 06/19/22 20:00 Temperature 96 F L Pulse Rate 64 Respiratory Rate 14 Blood Pressure 92/62 L Pulse Oximetry 98 Oxygen Delivery Room Air Exam Narrative: HEENT: PERRL, sclerae nonicteric pharyngeal mucosa pink and intact NECK: No JVD CHEST: Clear to auscultation. Normal effort. HEART: NL S1/S2, regular, no murmur ABDOMEN: Distended, BS hypoactive, soft, nontender, no mass, no bruits EXTREMITIES: No cyanosis, edema, or clubbing NEUROLOGIC: CN symmetric to inspection. MUSCULOSKELETAL: Left LE absent at site of hip disarticulation PSYCH: Responds to name by opening eyes, nonverbal otherwise Assessment and Plan Assessment and plan (1) Palliative care encounter: Code(s): Z51.5 - Encounter for palliative care Status: Acute Assessment and Plan: Meets inpatient hospice criteria due to requiring continuous IV hydromorphone for control of discomfort and restlessness Remainder palliative regimen as ordered (2) Cirrhosis of liver with ascites: Qualifiers: Hepatic cirrhosis type: unspecified hepatic cirrhosis Qualified Code(s): K74.60 - Unspecified cirrhosis of liver; R18.8 - Other ascites Code(s): K74.60 - Unspecified cirrhosis of liver; R18.8 - Other ascites Status: Acute (3) Altered mental status: Qualifiers: Altered mental status type: delirium Qualified Code(s): R41.0 - Disorientation, unspecified Code(s)
[2022-06-19 21:56] VITALS: BP 87/63; PULSE 81; RESP 16; TEMP 36.2; O2SAT 94
[2022-06-19] MEDS: HYDROmorphone HCL INJ (*CRX) 1 MG/ML SYR 0.5 MG IV PUSH (22:02)
[2022-06-20] MEDS: SILVERGEL (ELTA) 45 ML 1 APPLIC TOPICAL (11:28)
--- NOTE | 2022-06-20 12:02 | PM.IMPN ---
Progress Note: A&P Assessment and Plan (1) Palliative care encounter: Code(s): Z51.5 - Encounter for palliative care Status: Acute Assessment and Plan: Meets inpatient hospice criteria due to requiring continuous IV hydromorphone for control of discomfort and restlessness Remainder palliative regimen as ordered (2) Cirrhosis of liver with ascites: Qualifiers: Hepatic cirrhosis type: unspecified hepatic cirrhosis Qualified Code(s): K74.60 - Unspecified cirrhosis of liver; R18.8 - Other ascites Code(s): K74.60 - Unspecified cirrhosis of liver; R18.8 - Other ascites Status: Acute (3) Altered mental status: Qualifiers: Altered mental status type: delirium Qualified Code(s): R41.0 - Disorientation, unspecified Code(s): R41.82 - Altered mental status, unspecified Status: Acute (4) History of disarticulation of left hip: Code(s): Z89.622 - Acquired absence of left hip joint Status: Acute (5) Iron deficiency anemia: Code(s): D50.9 - Iron deficiency anemia, unspecified Status: Acute (6) Hyponatremia: Code(s): E87.1 - Hypo-osmolality and hyponatremia Status: Acute (7) Subclinical hypothyroidism: Code(s): E03.8 - Other specified hypothyroidism Status: Acute Subjective Date/time seen: 06/20/22 12:02 Interval history: Quiet night. Sleeping. Review of Systems Review of Systems: ROS unobtainable: Yes unobtainable due to medical condition Exam Narrative: HEENT: PERRL, sclerae nonicteric pharyngeal mucosa pink and intact NECK: No JVD CHEST: Clear to auscultation. Normal effort. HEART: NL S1/S2, regular, no murmur ABDOMEN: Distended, BS hypoactive, soft, nontender, no mass, no bruits EXTREMITIES: No cyanosis, edema, or clubbing NEUROLOGIC: CN symmetric to inspection. MUSCULOSKELETAL: Left LE absent at site of hip disarticulation PSYCH: Responds to name by opening eyes, nonverbal otherwise Objective Data Vital Signs Vital Signs: Vital Signs - 24 hr 06/19/22 15:26 06/19/22 20:00 06/19/22 21:56 Temperature 96 F L 97.1 F L Pulse Rate 64 81 Respiratory Rate 14 16 Blood Pressure 92/62 L 87/63 L Pulse Oximetry 98 94 Oxygen Delivery Room Air 06/20/22 08:00 Temperature Pulse Rate Respiratory Rate Blood Pressure Pulse Oximetry Oxygen Delivery Room Air Intake/Output Intake/Output: Intake & Output 06/17/22 06/18/22 06/19/22 06/20/22 23:59 23:59 23:59 23:59 Intake Total 332 550 Output Total 1025 Balance -693 550 Meds/Results Medications: Active Medications Generic Name Dose Route Start Last Admin Trade Name Freq PRN Reason Stop Dose Admin Artificial Tears 1 - 2 drop 06/18/22 19:34 Artificial Tears Ophth Soln 15 Ml Bottle EACH EYE PRN PRN Dry Eye(s) Bisacodyl 10 mg 06/18/22 19:35 Bisacodyl 10 Mg Suppository RECTAL DAILY PRN Constipation Diazepam 5 mg 06/18/22 19:38 06/19/22 03:29 Diazepam Inj (*Crx) 10 Mg/2 Ml Syringe IV PUSH 5 mg Q4H PRN Administration RESTLESSNESS Glycopyrrolate 0.1 mg 06/18/22 19:35 Glycopyrrolate Inj (*Sp) 0.2 Mg/Ml Vial IV PUSH Q4H PRN secretions Hydromorphone HCl 0.5 mg 06/18/22 19:37 06/19/22 22:02 Hydromorphone Hcl Inj (*Crx) 1 Mg/Ml Syr IV PUSH 0.5 mg Q2H PRN Administration Pain/RESTLESSNESS Hydromorphone HCl 50 mg/ 100 mls @ 0.5 mls/hr 06/18/22 19:40 06/19/22 20:46 Sodium Chloride IV CONT 0.25 mg/hr .Q24H KAREN 0.5 mls/hr Administration 0.25 MG/HR Prochlorperazine Edisylate 10 mg 06/18/22 19:35 Prochlorperazine Edisylate 10 Mg/2 Ml Vial IV PUSH Q6H PRN Nausea And Vomiting Silver Nitrate 1 applic 06/19/22 09:00 06/20/22 11:28 Silvergel (Elta) 45 Ml TOPICAL 1 applic DAILY KAREN Administration
[2022-06-20 14:53] VITALS: BP 98/57; PULSE 83; RESP 16; TEMP 36.2; O2SAT 96
[2022-06-20 16:50] VITALS: BMI 24.0
[2022-06-20 20:54] VITALS: BP 102/65; PULSE 89; RESP 18; TEMP 36.9; O2SAT 99
[2022-06-20] MEDS: HYDROmorphone HCL/PF (*CRX) 50 MG in SODIUM CHLORIDE 0.9% IV 95 ML IV CONT (21:08)
[2022-06-20] MEDS: diazePAM INJ (*CRX) 10 MG/2 ML SYRINGE 5 MG IV PUSH (21:16)
[2022-06-21] MEDS: SILVERGEL (ELTA) 45 ML 1 APPLIC TOPICAL (09:00)
--- NOTE | 2022-06-21 09:39 | PCDIET ---
Pt has been placed on hospice care. Regular diet. No further nutrition recommendations at this time.
[2022-06-21 14:00] VITALS: BP 93/63; PULSE 76; RESP 14; TEMP 36.2; O2SAT 95
--- NOTE | 2022-06-21 18:55 | PM.IMPN ---
Progress Note: A&P Assessment and Plan (1) Palliative care encounter: Code(s): Z51.5 - Encounter for palliative care Status: Acute Assessment and Plan: Meets inpatient hospice criteria due to requiring continuous IV hydromorphone for control of discomfort and restlessness Remainder palliative regimen as ordered (2) Cirrhosis of liver with ascites: Qualifiers: Hepatic cirrhosis type: unspecified hepatic cirrhosis Qualified Code(s): K74.60 - Unspecified cirrhosis of liver; R18.8 - Other ascites Code(s): K74.60 - Unspecified cirrhosis of liver; R18.8 - Other ascites Status: Acute (3) Altered mental status: Qualifiers: Altered mental status type: delirium Qualified Code(s): R41.0 - Disorientation, unspecified Code(s): R41.82 - Altered mental status, unspecified Status: Acute (4) History of disarticulation of left hip: Code(s): Z89.622 - Acquired absence of left hip joint Status: Acute (5) Iron deficiency anemia: Code(s): D50.9 - Iron deficiency anemia, unspecified Status: Acute (6) Hyponatremia: Code(s): E87.1 - Hypo-osmolality and hyponatremia Status: Acute (7) Subclinical hypothyroidism: Code(s): E03.8 - Other specified hypothyroidism Status: Acute Subjective Date/time seen: 06/21/22 18:55 Interval history: Remains comfortable on continuous IV antibiotics. Review of Systems Review of Systems: ROS unobtainable: Yes unobtainable due to medical condition Exam Narrative: HEENT: PERRL, sclerae nonicteric pharyngeal mucosa pink and intact NECK: No JVD CHEST: Clear to auscultation. Normal effort. HEART: NL S1/S2, regular, no murmur ABDOMEN: Distended, BS hypoactive, soft, nontender, no mass, no bruits EXTREMITIES: No cyanosis, edema, or clubbing NEUROLOGIC: CN symmetric to inspection. MUSCULOSKELETAL: Left LE absent at site of hip disarticulation PSYCH: Responds to name by opening eyes, nonverbal otherwise Objective Data Vital Signs Vital Signs: Vital Signs - 24 hr 06/20/22 20:54 06/20/22 21:00 06/21/22 14:00 Temperature 98.4 F 97.1 F L Pulse Rate 89 76 Respiratory Rate 18 14 Blood Pressure 102/65 93/63 L Pulse Oximetry 99 95 Oxygen Delivery Room Air Intake/Output Intake/Output: Intake & Output 06/18/22 06/19/22 06/20/22 06/21/22 23:59 23:59 23:59 23:59 Intake Total 332 1465 1460 Output Total 1025 700 600 Balance -693 765 860 Meds/Results Medications: Active Medications Generic Name Dose Route Start Last Admin Trade Name Freq PRN Reason Stop Dose Admin Artificial Tears 1 - 2 drop 06/18/22 19:34 Artificial Tears Ophth Soln 15 Ml Bottle EACH EYE PRN PRN Dry Eye(s) Bisacodyl 10 mg 06/18/22 19:35 Bisacodyl 10 Mg Suppository RECTAL DAILY PRN Constipation Diazepam 5 mg 06/18/22 19:38 06/20/22 21:16 Diazepam Inj (*Crx) 10 Mg/2 Ml Syringe IV PUSH 5 mg Q4H PRN Administration RESTLESSNESS Glycopyrrolate 0.1 mg 06/18/22 19:35 Glycopyrrolate Inj (*Sp) 0.2 Mg/Ml Vial IV PUSH Q4H PRN secretions Hydromorphone HCl 0.5 mg 06/18/22 19:37 06/19/22 22:02 Hydromorphone Hcl Inj (*Crx) 1 Mg/Ml Syr IV PUSH 0.5 mg Q2H PRN Administration Pain/RESTLESSNESS Hydromorphone HCl 50 mg/ 100 mls @ 0.5 mls/hr 06/18/22 19:40 06/20/22 21:08 Sodium Chloride IV CONT 0.25 mg/hr .Q24H KAREN 0.5 mls/hr Administration 0.25 MG/HR Prochlorperazine Edisylate 10 mg 06/18/22 19:35 Prochlorperazine Edisylate 10 Mg/2 Ml Vial IV PUSH Q6H PRN Nausea And Vomiting Silver Nitrate 1 applic 06/19/22 09:00 06/21/22 09:00 Silvergel (Elta) 45 Ml TOPICAL 1 applic DAILY KAREN Administration
[2022-06-21 21:37] VITALS: BP 110/66; PULSE 86; RESP 18; TEMP 36.7; O2SAT 94
[2022-06-21] MEDS: HYDROmorphone HCL/PF (*CRX) 50 MG in SODIUM CHLORIDE 0.9% IV 95 ML IV CONT (22:17)
[2022-06-22 08:00] VITALS: BP 99/58; PULSE 89; RESP 10; TEMP 37.1; O2SAT 87
[2022-06-22] MEDS: SILVERGEL (ELTA) 45 ML 1 APPLIC TOPICAL (09:05)
--- NOTE | 2022-06-22 17:36 | PM.IMPN ---
Progress Note: A&P Assessment and Plan (1) Palliative care encounter: Code(s): Z51.5 - Encounter for palliative care Status: Acute Assessment and Plan: Meets inpatient hospice criteria due to requiring continuous IV hydromorphone for control of discomfort and restlessness Remainder palliative regimen as ordered 06/22: Consider discharge 06/23 if he remains comfortable. 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 No solid food. Minimal PO liquids. Review of Systems Review of Systems: ROS unobtainable: Yes unobtainable due to medical condition Exam Narrative: HEENT: PERRL, sclerae nonicteric pharyngeal mucosa pink and intact NECK: No JVD CHEST: Clear to auscultation. Normal effort. HEART: NL S1/S2, regular, no murmur ABDOMEN: Distended, BS hypoactive, soft, nontender, no mass, no bruits EXTREMITIES: No cyanosis, edema, or clubbing NEUROLOGIC: CN symmetric to inspection. MUSCULOSKELETAL: Left LE absent at site of hip disarticulation PSYCH: Responds to name by opening eyes, nonverbal otherwise Objective Data Vital Signs Vital Signs: Vital Signs - 24 hr 06/21/22 21:37 06/22/22 08:00 Temperature 98.0 F 98.7 F Pulse Rate 86 89 Respiratory Rate 18 10 L Blood Pressure 110/66 99/58 L Pulse Oximetry 94 87 L Intake/Output Intake/Output: Intake & Output 06/19/22 06/20/22 06/21/22 06/22/22 23:59 23:59 23:59 23:59 Intake Total 332 1465 1560 480 Output Total 1025 700 600 Balance -693 765 960 480 Meds/Results Medications: Active Medications Generic Name Dose Route Start Last Admin Trade Name Freq PRN Reason Stop Dose Admin Artificial Tears 1 - 2 drop 06/18/22 19:34 Artificial Tears Ophth Soln 15 Ml Bottle EACH EYE PRN PRN Dry Eye(s) Bisacodyl 10 mg 06/18/22 19:35 Bisacodyl 10 Mg Suppository RECTAL DAILY PRN Constipation Diazepam 5 mg 06/18/22 19:38 06/20/22 21:16 Diazepam Inj (*Crx) 10 Mg/2 Ml Syringe IV PUSH 5 mg Q4H PRN Administration RESTLESSNESS Glycopyrrolate 0.1 mg 06/18/22 19:35 Glycopyrrolate Inj (*Sp) 0.2 Mg/Ml Vial IV PUSH Q4H PRN secretions Hydromorphone HCl 0.5 mg 06/18/22 19:37 06/19/22 22:02 Hydromorphone Hcl Inj (*Crx) 1 Mg/Ml Syr IV PUSH 0.5 mg Q2H PRN Administration Pain/RESTLESSNESS Hydromorphone HCl 50 mg/ 100 mls @ 0.5 mls/hr 06/18/22 19:40 06/21/22 22:17 Sodium Chloride IV CONT 0.25 mg/hr .Q24H KAREN 0.5 mls/hr Administration 0.25 MG/HR Prochlorperazine Edisylate 10 mg 06/18/22 19:35 Prochlorperazine Edisylate 10 Mg/2 Ml Vial IV PUSH Q6H PRN Nausea And Vomiting Silver Nitrate 1 applic 06/19/22 09:00 06/22/22 09:05 Silvergel (Elta) 45 Ml TOPICAL 1 applic DAILY KAREN Administration
[2022-06-22 22:15] VITALS: PULSE 84; RESP 20
[2022-06-22] MEDS: HYDROmorphone HCL/PF (*CRX) 50 MG in SODIUM CHLORIDE 0.9% IV 95 ML IV CONT (22:15)
[2022-06-23] VITALS: BP 100/59; PULSE 87; RESP 19; TEMP 36.3; O2SAT 92
[2022-06-23] MEDS: SILVERGEL (ELTA) 45 ML 1 APPLIC TOPICAL (08:32)
[2022-06-23 12:06] VITALS: BP 103/62; PULSE 71; RESP 16; TEMP 35.7; O2SAT 98
--- NOTE | 2022-06-23 14:56 | PM.IMPN ---
Progress Note: A&P Assessment and Plan (1) Palliative care encounter: Code(s): Z51.5 - Encounter for palliative care Status: Acute Assessment and Plan: Meets inpatient hospice criteria due to requiring continuous IV hydromorphone for control of discomfort and restlessness Remainder palliative regimen as ordered 06/22: Consider discharge 06/23 if he remains comfortable. 06/23: Add quetiapine at HS and consider transition to PO meds in AM in anticipation of discharge. 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 Ate up to 50% of food today. Denied pain. Still hallucinating at night and very restless. Talks to self during day, but remains calm then. Review of Systems Review of Systems: ROS unobtainable: Yes unobtainable due to medical condition Exam Narrative: Alert. Ox1. Appears comfortable. Objective Data Vital Signs Vital Signs: Vital Signs - 24 hr 06/22/22 22:15 06/22/22 22:15 06/23/22 00:00 Temperature 97.3 F L Pulse Rate 84 84 87 Respiratory Rate 20 20 19 Blood Pressure 100/59 L Pulse Oximetry 92 06/23/22 12:06 Temperature 96.3 F L Pulse Rate 71 Respiratory Rate 16 Blood Pressure 103/62 Pulse Oximetry 98 Intake/Output Intake/Output: Intake & Output 06/20/22 06/21/22 06/22/22 06/23/22 23:59 23:59 23:59 23:59 Intake Total 1465 1560 1060 280 Output Total 700 600 900 Balance 545 843 1434 -620 Meds/Results Medications: Active Medications Generic Name Dose Route Start Last Admin Trade Name Freq PRN Reason Stop Dose Admin Artificial Tears 1 - 2 drop 06/18/22 19:34 Artificial Tears Ophth Soln 15 Ml Bottle EACH EYE PRN PRN Dry Eye(s) Bisacodyl 10 mg 06/18/22 19:35 Bisacodyl 10 Mg Suppository RECTAL DAILY PRN Constipation Diazepam 5 mg 06/18/22 19:38 06/20/22 21:16 Diazepam Inj (*Crx) 10 Mg/2 Ml Syringe IV PUSH 5 mg Q4H PRN Administration RESTLESSNESS Glycopyrrolate 0.1 mg 06/18/22 19:35 Glycopyrrolate Inj (*Sp) 0.2 Mg/Ml Vial IV PUSH Q4H PRN secretions Hydromorphone HCl 0.5 mg 06/18/22 19:37 06/19/22 22:02 Hydromorphone Hcl Inj (*Crx) 1 Mg/Ml Syr IV PUSH 0.5 mg Q2H PRN Administration Pain/RESTLESSNESS Hydromorphone HCl 50 mg/ 100 mls @ 0.5 mls/hr 06/18/22 19:40 06/22/22 22:15 Sodium Chloride IV CONT 0.25 mg/hr .Q24H KAREN 0.5 mls/hr Administration 0.25 MG/HR Prochlorperazine Edisylate 10 mg 06/18/22 19:35 Prochlorperazine Edisylate 10 Mg/2 Ml Vial IV PUSH Q6H PRN Nausea And Vomiting Silver Nitrate 1 applic 06/19/22 09:00 06/23/22 08:32 Silvergel (Elta) 45 Ml TOPICAL 1 applic DAILY KAREN Administration
[2022-06-23 22:00] VITALS: BP 100/58; PULSE 81; RESP 18; TEMP 36.6; O2SAT 94
[2022-06-24 00:07] VITALS: PULSE 84; RESP 18
[2022-06-24] MEDS: HYDROmorphone HCL/PF (*CRX) 50 MG in SODIUM CHLORIDE 0.9% IV 95 ML IV CONT ×2 (00:07→21:03)
[2022-06-24] MEDS: diazePAM INJ (*CRX) 10 MG/2 ML SYRINGE 5 MG IV PUSH ×3 (12:57→21:05)
[2022-06-24 14:00] VITALS: BP 108/68; PULSE 77; RESP 16; TEMP 35.9; O2SAT 96
[2022-06-24] MEDS: SILVERGEL (ELTA) 45 ML 1 APPLIC TOPICAL (14:00)
--- NOTE | 2022-06-24 17:12 | PM.IMPN ---
Progress Note: A&P Assessment and Plan (1) Palliative care encounter: Code(s): Z51.5 - Encounter for palliative care Status: Acute Assessment and Plan: Meets inpatient hospice criteria due to requiring continuous IV hydromorphone for control of discomfort and restlessness Remainder palliative regimen as ordered 06/22: Consider discharge 06/23 if he remains comfortable. 06/23: Add quetiapine at HS and consider transition to PO meds in AM in anticipation of discharge. 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 Agitated and thrashing about during the night. Review of Systems Review of Systems: ROS unobtainable: Yes unobtainable due to medical condition Exam Narrative: Alert. Ox1. Appears comfortable. Objective Data Vital Signs Vital Signs: Vital Signs - 24 hr 06/23/22 22:00 06/24/22 00:07 06/24/22 00:07 Temperature 97.8 F Pulse Rate 81 84 84 Respiratory Rate 18 18 18 Blood Pressure 100/58 L Pulse Oximetry 94 06/24/22 14:00 Temperature 96.7 F L Pulse Rate 77 Respiratory Rate 16 Blood Pressure 108/68 Pulse Oximetry 96 Intake/Output Intake/Output: Intake & Output 06/21/22 06/22/22 06/23/22 06/24/22 23:59 23:59 23:59 23:59 Intake Total 1560 1060 502 100 Output Total 600 900 650 Balance 960 1060 -407 -202 Meds/Results Medications: Active Medications Generic Name Dose Route Start Last Admin Trade Name Freq PRN Reason Stop Dose Admin Artificial Tears 1 - 2 drop 06/18/22 19:34 Artificial Tears Ophth Soln 15 Ml Bottle EACH EYE PRN PRN Dry Eye(s) Bisacodyl 10 mg 06/18/22 19:35 Bisacodyl 10 Mg Suppository RECTAL DAILY PRN Constipation Diazepam 5 mg 06/18/22 19:38 06/24/22 12:57 Diazepam Inj (*Crx) 10 Mg/2 Ml Syringe IV PUSH 5 mg Q4H PRN Administration RESTLESSNESS Diazepam 5 mg 06/24/22 21:00 Diazepam Inj (*Crx) 10 Mg/2 Ml Syringe IV PUSH HS KAREN Glycopyrrolate 0.1 mg 06/18/22 19:35 Glycopyrrolate Inj (*Sp) 0.2 Mg/Ml Vial IV PUSH Q4H PRN secretions Hydromorphone HCl 0.5 mg 06/18/22 19:37 06/19/22 22:02 Hydromorphone Hcl Inj (*Crx) 1 Mg/Ml Syr IV PUSH 0.5 mg Q2H PRN Administration Pain/RESTLESSNESS Hydromorphone HCl 50 mg/ 100 mls @ 0.5 mls/hr 06/18/22 19:40 06/24/22 00:07 Sodium Chloride IV CONT 0.25 mg/hr .Q24H KAREN 0.5 mls/hr Administration 0.25 MG/HR Prochlorperazine Edisylate 10 mg 06/18/22 19:35 Prochlorperazine Edisylate 10 Mg/2 Ml Vial IV PUSH Q6H PRN Nausea And Vomiting Quetiapine Fumarate 50 mg 06/24/22 21:00 Quetiapine Fumarate 25 Mg Tablet PO HS KAREN Silver Nitrate 1 applic 06/19/22 09:00 06/23/22 08:32 Silvergel (Elta) 45 Ml TOPICAL 1 applic DAILY KAREN Administration
[2022-06-24 20:00] VITALS: BP 106/63; PULSE 73; RESP 16; TEMP 35.7; O2SAT 96
[2022-06-24] MEDS: QUEtiapine FUMARATE 25 MG TABLET 50 MG PO (21:06)
[2022-06-25] MEDS: SILVERGEL (ELTA) 45 ML 1 APPLIC TOPICAL (08:28)
[2022-06-25 10:36] VITALS: BP 83/56; PULSE 68; RESP 16; TEMP 35.8; O2SAT 90
[2022-06-25 20:00] VITALS: BP 90/53; PULSE 62; RESP 16; TEMP 35.7; O2SAT 90
[2022-06-25] MEDS: diazePAM INJ (*CRX) 10 MG/2 ML SYRINGE 5 MG IV PUSH (21:05)
[2022-06-25] MEDS: QUEtiapine FUMARATE 25 MG TABLET 50 MG PO (21:05)
[2022-06-25] MEDS: HYDROmorphone HCL/PF (*CRX) 50 MG in SODIUM CHLORIDE 0.9% IV 95 ML IV CONT (21:06)
--- NOTE | 2022-06-25 21:07 | PM.IMPN ---
Progress Note: A&P Assessment and Plan (1) Palliative care encounter: Code(s): Z51.5 - Encounter for palliative care Status: Acute Assessment and Plan: Meets inpatient hospice criteria due to requiring continuous IV hydromorphone for control of discomfort and restlessness Remainder palliative regimen as ordered 06/22: Consider discharge 06/23 if he remains comfortable. 06/23: Add quetiapine at HS and consider transition to PO meds in AM in anticipation of discharge. D/w daughterMatilda, by phone 06/24: Increased quetiapine to 50 mg at hs and added diazepam 5mg iv at hs 06/25: Due to dramatic decline, continue as hospice inpatient (2) Cirrhosis of liver with ascites: Qualifiers: Hepatic cirrhosis type: unspecified hepatic cirrhosis Qualified Code(s): K74.60 - Unspecified cirrhosis of liver; R18.8 - Other ascites Code(s): K74.60 - Unspecified cirrhosis of liver; R18.8 - Other ascites Status: Acute (3) Altered mental status: Qualifiers: Altered mental status type: delirium Qualified Code(s): R41.0 - Disorientation, unspecified Code(s): R41.82 - Altered mental status, unspecified Status: Acute (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 Difficult to arouse. Asleep almost constantly. No further agitation. Review of Systems Review of Systems: ROS unobtainable: Yes unobtainable due to medical condition Exam Narrative: HEENT: normocephalic NECK: No JVD CHEST: Coarse BS HEART: NL S1/S2, regular, no murmur ABDOMEN: Distended, BS hypoactive, soft, nontender, no mass, no bruits EXTREMITIES: Trace right ankle edema NEUROLOGIC: CN symmetric to inspection. MUSCULOSKELETAL: Left LE absent at site of hip disarticulation PSYCH: Unresponsive to verbal stimuli, minimally reponsive to tactile stimuli Objective Data Vital Signs Vital Signs: Vital Signs - 24 hr 06/25/22 08:30 06/25/22 10:36 Temperature 96.4 F L Pulse Rate 68 Respiratory Rate 16 Blood Pressure 83/56 L Pulse Oximetry 90 Oxygen Delivery Room Air Intake/Output Intake/Output: Intake & Output 06/22/22 06/23/22 06/24/22 06/25/22 23:59 23:59 23:59 23:59 Intake Total 1060 502 200 240 Output Total 900 975 400 Balance 1060 -398 -775 -160 Meds/Results Medications: Active Medications Generic Name Dose Route Start Last Admin Trade Name Freq PRN Reason Stop Dose Admin Artificial Tears 1 - 2 drop 06/18/22 19:34 Artificial Tears Ophth Soln 15 Ml Bottle EACH EYE PRN PRN Dry Eye(s) Bisacodyl 10 mg 06/18/22 19:35 Bisacodyl 10 Mg Suppository RECTAL DAILY PRN Constipation Diazepam 5 mg 06/18/22 19:38 06/24/22 18:55 Diazepam Inj (*Crx) 10 Mg/2 Ml Syringe IV PUSH 5 mg Q4H PRN Administration RESTLESSNESS Diazepam 5 mg 06/24/22 21:00 06/24/22 21:05 Diazepam Inj (*Crx) 10 Mg/2 Ml Syringe IV PUSH 5 mg HS KAREN Administration Glycopyrrolate 0.1 mg 06/18/22 19:35 Glycopyrrolate Inj (*Sp) 0.2 Mg/Ml Vial IV PUSH Q4H PRN secretions Hydromorphone HCl 0.5 mg 06/18/22 19:37 06/19/22 22:02 Hydromorphone Hcl Inj (*Crx) 1 Mg/Ml Syr IV PUSH 0.5 mg Q2H PRN Administration Pain/RESTLESSNESS Hydromorphone HCl 50 mg/ 100 mls @ 0.5 mls/hr 06/18/22 19:40 06/24/22 21:03 Sodium Chloride IV CONT 0.25 mg/hr .Q24H KAREN 0.5 mls/hr Administration Prochlorperazine Edisylate 10 mg 06/18/22 19:35 Prochlorperazine Edisylate 10 Mg/2 Ml Vial I
--- NOTE | 2022-06-26 07:21 | PM.IMPN ---
Progress Note: A&P Assessment and Plan (1) Palliative care encounter: Code(s): Z51.5 - Encounter for palliative care Status: Acute Assessment and Plan: Meets inpatient hospice criteria due to requiring continuous IV hydromorphone for control of discomfort and restlessness Remainder palliative regimen as ordered 06/22: Consider discharge 06/23 if he remains comfortable. 06/23: Add quetiapine at HS and consider transition to PO meds in AM in anticipation of discharge. D/w daughterMatilda, by phone 06/24: Increased quetiapine to 50 mg at hs and added diazepam 5mg iv at hs 06/25: Due to dramatic decline, continue as hospice inpatient (2) Cirrhosis of liver with ascites: Qualifiers: Hepatic cirrhosis type: unspecified hepatic cirrhosis Qualified Code(s): K74.60 - Unspecified cirrhosis of liver; R18.8 - Other ascites Code(s): K74.60 - Unspecified cirrhosis of liver; R18.8 - Other ascites Status: Acute (3) Altered mental status: Qualifiers: Altered mental status type: delirium Qualified Code(s): R41.0 - Disorientation, unspecified Code(s): R41.82 - Altered mental status, unspecified Status: Acute (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 Asleep almost constantly. No further agitation. Review of Systems Review of Systems: ROS unobtainable: Yes unobtainable due to medical condition Exam Narrative: HEENT: normocephalic NECK: No JVD CHEST: Coarse BS HEART: NL S1/S2, regular, no murmur ABDOMEN: Distended, BS hypoactive, soft, nontender, no mass, no bruits EXTREMITIES: Trace right ankle edema NEUROLOGIC: CN symmetric to inspection. MUSCULOSKELETAL: Left LE absent at site of hip disarticulation PSYCH: Unresponsive to verbal or tactile stimuli Objective Data Vital Signs Vital Signs: Vital Signs - 24 hr 06/25/22 08:30 06/25/22 10:36 Temperature 96.4 F L Pulse Rate 68 Respiratory Rate 16 Blood Pressure 83/56 L Pulse Oximetry 90 Oxygen Delivery Room Air Intake/Output Intake/Output: Intake & Output 06/23/22 06/24/22 06/25/22 06/26/22 23:59 23:59 23:59 23:59 Intake Total 502 200 340 Output Total 900 975 400 Balance -398 -775 -60 Meds/Results Medications: Active Medications Generic Name Dose Route Start Last Admin Trade Name Freq PRN Reason Stop Dose Admin Artificial Tears 1 - 2 drop 06/18/22 19:34 Artificial Tears Ophth Soln 15 Ml Bottle EACH EYE PRN PRN Dry Eye(s) Bisacodyl 10 mg 06/18/22 19:35 Bisacodyl 10 Mg Suppository RECTAL DAILY PRN Constipation Diazepam 5 mg 06/18/22 19:38 06/24/22 18:55 Diazepam Inj (*Crx) 10 Mg/2 Ml Syringe IV PUSH 5 mg Q4H PRN Administration RESTLESSNESS Diazepam 5 mg 06/24/22 21:00 06/25/22 21:05 Diazepam Inj (*Crx) 10 Mg/2 Ml Syringe IV PUSH 5 mg HS KAREN Administration Glycopyrrolate 0.1 mg 06/18/22 19:35 Glycopyrrolate Inj (*Sp) 0.2 Mg/Ml Vial IV PUSH Q4H PRN secretions Hydromorphone HCl 0.5 mg 06/18/22 19:37 06/19/22 22:02 Hydromorphone Hcl Inj (*Crx) 1 Mg/Ml Syr IV PUSH 0.5 mg Q2H PRN Administration Pain/RESTLESSNESS Hydromorphone HCl 50 mg/ 100 mls @ 0.5 mls/hr 06/18/22 19:40 06/25/22 21:06 Sodium Chloride IV CONT 0.25 mg/hr .Q24H KAREN 0.5 mls/hr Administration Prochlorperazine Edisylate 10 mg 06/18/22 19:35 Prochlorperazine Edisylate 10 Mg/2 Ml Vial IV PUSH Q6H PRN Nausea And Vomiting Quetiapine
[2022-06-26 08:00] VITALS: BP 101/60; PULSE 72; RESP 16; TEMP 36.1; O2SAT 91
[2022-06-26] MEDS: GLYCOPYRROLATE INJ (*SP) 0.2 MG/ML VIAL 0.1 MG IV PUSH ×3 (09:41→20:35)
[2022-06-26] MEDS: diazePAM INJ (*CRX) 10 MG/2 ML SYRINGE 5 MG IV PUSH ×2 (13:36→20:21)
[2022-06-26] MEDS: QUEtiapine FUMARATE 25 MG TABLET 50 MG PO (20:21)
[2022-06-26] MEDS: HYDROmorphone HCL/PF (*CRX) 50 MG in SODIUM CHLORIDE 0.9% IV 95 ML IV CONT (20:47)
[2022-06-26 22:00] VITALS: BP 97/68; PULSE 80; RESP 18; TEMP 36.4; O2SAT 94
[2022-06-27] MEDS: diazePAM INJ (*CRX) 10 MG/2 ML SYRINGE 5 MG IV PUSH ×2 (11:22→21:11)
[2022-06-27] MEDS: GLYCOPYRROLATE INJ (*SP) 0.2 MG/ML VIAL 0.1 MG IV PUSH ×2 (12:01→21:11)
[2022-06-27] MEDS: HYDROmorphone HCL INJ (*CRX) 1 MG/ML SYR 0.5 MG IV PUSH (12:12)
--- NOTE | 2022-06-27 17:07 | PM.IMPN ---
Progress Note: A&P Assessment and Plan (1) Palliative care encounter: Code(s): Z51.5 - Encounter for palliative care Status: Acute Assessment and Plan: Meets inpatient hospice criteria due to requiring continuous IV hydromorphone for control of discomfort and restlessness Remainder palliative regimen as ordered 06/22: Consider discharge 06/23 if he remains comfortable. 06/23: Add quetiapine at HS and consider transition to PO meds in AM in anticipation of discharge. D/w daughterMatilda, by phone 06/24: Increased quetiapine to 50 mg at hs and added diazepam 5mg iv at hs 06/25: Due to dramatic decline, continue as hospice inpatient (2) Cirrhosis of liver with ascites: Qualifiers: Hepatic cirrhosis type: unspecified hepatic cirrhosis Qualified Code(s): K74.60 - Unspecified cirrhosis of liver; R18.8 - Other ascites Code(s): K74.60 - Unspecified cirrhosis of liver; R18.8 - Other ascites Status: Acute (3) Altered mental status: Qualifiers: Altered mental status type: delirium Qualified Code(s): R41.0 - Disorientation, unspecified Code(s): R41.82 - Altered mental status, unspecified Status: Acute (4) History of disarticulation of left hip: Code(s): Z89.622 - Acquired absence of left hip joint Status: Acute (5) Iron deficiency anemia: Code(s): D50.9 - Iron deficiency anemia, unspecified Status: Acute (6) Hyponatremia: Code(s): E87.1 - Hypo-osmolality and hyponatremia Status: Acute (7) Subclinical hypothyroidism: Code(s): E03.8 - Other specified hypothyroidism Status: Acute Subjective Date/time seen: 06/27/22 17:07 Interval history: Increased issues with aspiration overnight as well as restlessness. Resting quietly since hydromorphone was increased. Review of Systems Review of Systems: ROS unobtainable: Yes unobtainable due to medical condition Exam Narrative: HEENT: normocephalic NECK: No JVD CHEST: Coarse BS HEART: NL S1/S2, regular, no murmur ABDOMEN: Distended, BS hypoactive, soft, nontender, no mass, no bruits EXTREMITIES: Trace right ankle edema NEUROLOGIC: CN symmetric to inspection. MUSCULOSKELETAL: Left LE absent at site of hip disarticulation PSYCH: Unresponsive to verbal or tactile stimuli Objective Data Vital Signs Vital Signs: Vital Signs - 24 hr 06/26/22 22:00 Temperature 97.6 F Pulse Rate 80 Respiratory Rate 18 Blood Pressure 97/68 L Pulse Oximetry 94 Intake/Output Intake/Output: Intake & Output 06/24/22 06/25/22 06/26/22 06/27/22 23:59 23:59 23:59 23:59 Intake Total 200 340 160 Output Total 400 309 9111 350 [facility]775 -60 -990 -350 Meds/Results Medications: Active Medications Generic Name Dose Route Start Last Admin Trade Name Freq PRN Reason Stop Dose Admin Artificial Tears 1 - 2 drop 06/18/22 19:34 Artificial Tears Ophth Soln 15 Ml Bottle EACH EYE PRN PRN Dry Eye(s) Bisacodyl 10 mg 06/18/22 19:35 Bisacodyl 10 Mg Suppository RECTAL DAILY PRN Constipation Diazepam 5 mg 06/18/22 19:38 06/27/22 11:22 Diazepam Inj (*Crx) 10 Mg/2 Ml Syringe IV PUSH 5 mg Q4H PRN Administration RESTLESSNESS Diazepam 5 mg 06/24/22 21:00 06/26/22 20:21 Diazepam Inj (*Crx) 10 Mg/2 Ml Syringe IV PUSH 5 mg HS KAREN Administration Glycopyrrolate 0.1 mg 06/18/22 19:35 06/27/22 12:01 Glycopyrrolate Inj (*Sp) 0.2 Mg/Ml Vial IV PUSH 0.1 mg Q4H PRN Administration secretions Hydromorphone HCl 2 mg 06/27/22 13:04 Hydromorphone Hcl Inj (*Crx) 1 Mg/Ml Syr IV PUSH Q2H PRN Pain/RESTLESSNESS Hydromorphone HCl 50 mg/ 100 mls @ 2 mls/hr 06/18/22 19:40 06/27/22 14:08 Sodium Chloride IV CONT 1 mg/hr .Q24H KAREN 2 mls/hr Infusion Prochlorperazine Edisylate 10 mg 06/18/22 19:35 Prochlorperazine Edisylate 10 Mg/2 Ml Vial IV PUSH Q6H PRN Nausea And Vomiting Silver Nitr
[2022-06-27 20:00] VITALS: BP 98/85; PULSE 84; RESP 12; TEMP 36.1; O2SAT 86
[2022-06-27] MEDS: HYDROmorphone HCL/PF (*CRX) 50 MG in SODIUM CHLORIDE 0.9% IV 95 ML IV CONT (21:25)
[2022-06-28] MEDS: diazePAM INJ (*CRX) 10 MG/2 ML SYRINGE 5 MG IV PUSH ×5 (01:06→17:12)
[2022-06-28] MEDS: GLYCOPYRROLATE INJ (*SP) 0.2 MG/ML VIAL 0.1 MG IV PUSH ×3 (01:13→17:16)
--- NOTE | 2022-06-28 12:18 | PM.IMPN ---
Progress Note: A&P Assessment and Plan (1) Palliative care encounter: Code(s): Z51.5 - Encounter for palliative care Status: Acute Assessment and Plan: Meets inpatient hospice criteria due to requiring continuous IV hydromorphone for control of discomfort and restlessness Remainder palliative regimen as ordered 06/22: Consider discharge 06/23 if he remains comfortable. 06/23: Add quetiapine at HS and consider transition to PO meds in AM in anticipation of discharge. D/w daughterMatilda, by phone 06/24: Increased quetiapine to 50 mg at hs and added diazepam 5mg iv at hs 06/25: Due to dramatic decline, continue as hospice inpatient (2) Cirrhosis of liver with ascites: Qualifiers: Hepatic cirrhosis type: unspecified hepatic cirrhosis Qualified Code(s): K74.60 - Unspecified cirrhosis of liver; R18.8 - Other ascites Code(s): K74.60 - Unspecified cirrhosis of liver; R18.8 - Other ascites Status: Acute (3) Altered mental status: Qualifiers: Altered mental status type: delirium Qualified Code(s): R41.0 - Disorientation, unspecified Code(s): R41.82 - Altered mental status, unspecified Status: Acute (4) History of disarticulation of left hip: Code(s): Z89.622 - Acquired absence of left hip joint Status: Acute (5) Iron deficiency anemia: Code(s): D50.9 - Iron deficiency anemia, unspecified Status: Acute (6) Hyponatremia: Code(s): E87.1 - Hypo-osmolality and hyponatremia Status: Acute (7) Subclinical hypothyroidism: Code(s): E03.8 - Other specified hypothyroidism Status: Acute Subjective Date/time seen: 06/28/22 12:18 Interval history: Doing better since dose increase. Gurgling respirations but not struggling. Review of Systems Review of Systems: ROS unobtainable: Yes unobtainable due to medical condition Exam Narrative: HEENT: normocephalic NECK: No JVD CHEST: Coarse BS HEART: NL S1/S2, regular, no murmur ABDOMEN: Distended, BS hypoactive, soft, nontender, no mass, no bruits EXTREMITIES: Trace right ankle edema NEUROLOGIC: CN symmetric to inspection. MUSCULOSKELETAL: Left LE absent at site of hip disarticulation PSYCH: Unresponsive to verbal or tactile stimuli Objective Data Vital Signs Vital Signs: Vital Signs - 24 hr 06/27/22 20:00 06/28/22 08:45 Temperature 96.9 F L Pulse Rate 84 Respiratory Rate 12 Blood Pressure 98/85 L Pulse Oximetry 86 L Oxygen Delivery Nasal Cannula Oxygen Flow Rate 2 Intake/Output Intake/Output: Intake & Output 06/25/22 06/26/22 06/27/22 06/28/22 23:59 23:59 23:59 23:59 Intake Total 340 160 15 Output Total 400 1150 625 250 Balance -60 -990 -610 -250 Meds/Results Medications: Active Medications Generic Name Dose Route Start Last Admin Trade Name Freq PRN Reason Stop Dose Admin Artificial Tears 1 - 2 drop 06/18/22 19:34 Artificial Tears Ophth Soln 15 Ml Bottle EACH EYE PRN PRN Dry Eye(s) Bisacodyl 10 mg 06/18/22 19:35 Bisacodyl 10 Mg Suppository RECTAL DAILY PRN Constipation Diazepam 5 mg 06/18/22 19:38 06/28/22 08:56 Diazepam Inj (*Crx) 10 Mg/2 Ml Syringe IV PUSH 5 mg Q4H PRN Administration RESTLESSNESS Diazepam 5 mg 06/28/22 00:00 06/28/22 05:43 Diazepam Inj (*Crx) 10 Mg/2 Ml Syringe IV PUSH 5 mg Q6HR KAREN Administration Glycopyrrolate 0.1 mg 06/18/22 19:35 06/28/22 05:49 Glycopyrrolate Inj (*Sp) 0.2 Mg/Ml Vial IV PUSH 0.1 mg Q4H PRN Administration secretions Hydromorphone HCl 2 mg 06/27/22 13:04 Hydromorphone Hcl Inj (*Crx) 1 Mg/Ml Syr IV PUSH Q2H PRN Pain/RESTLESSNESS Hydromorphone HCl 50 mg/ 100 mls @ 2 mls/hr 06/18/22 19:40 06/27/22 21:25 Sodium Chloride IV CONT 1 mg/hr .Q24H KAREN 2 mls/hr Administration Prochlorperazine Edisylate 10 mg 06/18/22 19:35 Prochlorperazine Edisylate 10 Mg/2 Ml Vial IV PUSH Q6H P
[2022-06-28 13:38] VITALS: BP 80/50; PULSE 92; RESP 5; TEMP 36.2; O2SAT 97
[2022-06-28 20:00] VITALS: BP 86/55; PULSE 88; RESP 6; TEMP 36.2; O2SAT 95
[2022-06-28] MEDS: HYDROmorphone HCL/PF (*CRX) 50 MG in SODIUM CHLORIDE 0.9% IV 95 ML IV CONT (21:49)
[2022-06-29] MEDS: diazePAM INJ (*CRX) 10 MG/2 ML SYRINGE 5 MG IV PUSH ×5 (00:53→23:58)
[2022-06-29 08:00] VITALS: BP 63/46; PULSE 72; RESP 8; TEMP 35.6; O2SAT 87
[2022-06-29] MEDS: GLYCOPYRROLATE INJ (*SP) 0.2 MG/ML VIAL 0.1 MG IV PUSH (08:50)
--- NOTE | 2022-06-29 16:05 | PM.IMPN ---
Progress Note: A&P Assessment and Plan (1) Palliative care encounter: Code(s): Z51.5 - Encounter for palliative care Status: Acute Assessment and Plan: Meets inpatient hospice criteria due to requiring continuous IV hydromorphone for control of discomfort and restlessness Remainder palliative regimen as ordered 06/22: Consider discharge 06/23 if he remains comfortable. 06/23: Add quetiapine at HS and consider transition to PO meds in AM in anticipation of discharge. D/w daughterMatilda, by phone 06/24: Increased quetiapine to 50 mg at hs and added diazepam 5mg iv at hs 06/25: Due to dramatic decline, continue as hospice inpatient (2) Cirrhosis of liver with ascites: Qualifiers: Hepatic cirrhosis type: unspecified hepatic cirrhosis Qualified Code(s): K74.60 - Unspecified cirrhosis of liver; R18.8 - Other ascites Code(s): K74.60 - Unspecified cirrhosis of liver; R18.8 - Other ascites Status: Acute (3) Altered mental status: Qualifiers: Altered mental status type: delirium Qualified Code(s): R41.0 - Disorientation, unspecified Code(s): R41.82 - Altered mental status, unspecified Status: Acute (4) History of disarticulation of left hip: Code(s): Z89.622 - Acquired absence of left hip joint Status: Acute (5) Iron deficiency anemia: Code(s): D50.9 - Iron deficiency anemia, unspecified Status: Acute (6) Hyponatremia: Code(s): E87.1 - Hypo-osmolality and hyponatremia Status: Acute (7) Subclinical hypothyroidism: Code(s): E03.8 - Other specified hypothyroidism Status: Acute Subjective Date/time seen: 06/29/22 16:05 Interval history: Doing better since dose increase. Gurgling respirations but not struggling. Review of Systems Review of Systems: ROS unobtainable: Yes unobtainable due to medical condition Exam Narrative: HEENT: normocephalic NECK: No JVD CHEST: Coarse BS HEART: NL S1/S2, regular, no murmur ABDOMEN: Distended, BS hypoactive, soft, nontender, no mass, no bruits EXTREMITIES: Trace right ankle edema NEUROLOGIC: CN symmetric to inspection. MUSCULOSKELETAL: Left LE absent at site of hip disarticulation PSYCH: Unresponsive to verbal or tactile stimuli Objective Data Vital Signs Vital Signs: Vital Signs - 24 hr 06/28/22 20:00 06/29/22 08:00 Temperature 97.2 F L 96.1 F L Pulse Rate 88 72 Respiratory Rate 6 L 8 L Blood Pressure 86/55 L 63/46 L Pulse Oximetry 95 87 L Intake/Output Intake/Output: Intake & Output 06/26/22 06/27/22 06/28/22 06/29/22 23:59 23:59 23:59 23:59 Intake Total 160 15 35 Output Total 1150 625 250 100 Balance -990 -610 -215 -100 Meds/Results Medications: Active Medications Generic Name Dose Route Start Last Admin Trade Name Freq PRN Reason Stop Dose Admin Artificial Tears 1 - 2 drop 06/18/22 19:34 Artificial Tears Ophth Soln 15 Ml Bottle EACH EYE PRN PRN Dry Eye(s) Bisacodyl 10 mg 06/18/22 19:35 Bisacodyl 10 Mg Suppository RECTAL DAILY PRN Constipation Diazepam 5 mg 06/18/22 19:38 06/28/22 08:56 Diazepam Inj (*Crx) 10 Mg/2 Ml Syringe IV PUSH 5 mg Q4H PRN Administration RESTLESSNESS Diazepam 5 mg 06/28/22 00:00 06/29/22 06:02 Diazepam Inj (*Crx) 10 Mg/2 Ml Syringe IV PUSH 5 mg Q6HR KAREN Administration Glycopyrrolate 0.1 mg 06/18/22 19:35 06/29/22 08:50 Glycopyrrolate Inj (*Sp) 0.2 Mg/Ml Vial IV PUSH 0.1 mg Q4H PRN Administration secretions Hydromorphone HCl 2 mg 06/27/22 13:04 Hydromorphone Hcl Inj (*Crx) 1 Mg/Ml Syr IV PUSH Q2H PRN Pain/RESTLESSNESS Hydromorphone HCl 50 mg/ 100 mls @ 2 mls/hr 06/18/22 19:40 06/28/22 21:49 Sodium Chloride IV CONT 1 mg/hr .Q24H KAREN 2 mls/hr Administration Prochlorperazine Edisylate 10 mg 06/18/22 19:35 Prochlorperazine Edisylate 10 Mg/2 Ml Vial IV PUSH Q6H PRN Nausea And Vomiting
[2022-06-29] MEDS: HYDROmorphone HCL/PF (*CRX) 50 MG in SODIUM CHLORIDE 0.9% IV 95 ML IV CONT (21:52)
[2022-06-29 22:00] VITALS: BP 58/34; PULSE 64; RESP 8; TEMP 35.6; O2SAT 87
--- NOTE | 2022-06-30 02:36 | PC.NURSE ---
0058 PATIENT FOUND WITHOUT RESPIRATIONS, BP, HEART RATE, OR CORNEAL REFLEX
--- NOTE | 2022-06-30 02:37 | PC.NURSE ---
0235 BODY TO [facility] PER CART
--- NOTE | 2022-06-30 14:49 | PM.DDS ---
Discharge Summary Date and Time Date of : 06/30/22 Time of : 00:58 Provider Pronounced By: KURTIS LESTER RN Probable Cause of Probable Cause of : Cirrhosis of liver with metabolic encephalopathy Summary Hospital Course: Admitted to inpatient hospice service due to uncontrolled restlessness. Medications titrated to comfort. Mr. Pizano peacefully. Additional Data Confirmation of as documented by pronouncing clinician: Pupillary Reflex, Palpable Pulses, Response to Stimuli, Heart Tones and Breath Sounds Name of Provider Notified: DYLAN MCCOLLUM Time Provider Notified: 02:00 Provider Requests Autopsy: No Family Requests Autopsy: No Shellfish Checker Notified: Yes Date [facility] Notified of : 06/30/22 Time [facility] Notified of : 01:18
== END 2022-06-30 00:58 | disposition expired | DRG 951 ==
PROVIDERS: Admitting Provider Internal Medicine; Visit Provider Internal Medicine
DX: Z51.5 Encounter for palliative care (principal); K74.60 Unspecified cirrhosis of liver; G93.41 Metabolic encephalopathy; R44.3 Hallucinations, unspecified; R18.8 Other ascites; D50.9 Iron deficiency anemia, unspecified; E03.9 Hypothyroidism, unspecified; E78.00 Pure hypercholesterolemia, unspecified; F17.290 Nicotine dependence, other tobacco product, uncomplicated; I10 Essential (primary) hypertension; Z89.612 Acquired absence of left leg above knee
CPT/HCPCS: A9270; J1170; J3360